=== PATIENT | male | born 1990 | race Caucasian/White ===

== ENCOUNTER 2019-02-01 09:05 | Inpatient (IN) | payer BC, SELFPAY ==
[2019-02-01] MEDS ORDERED: FENTANYL CITR 100 MCG/2 ML ONE (09:20)
[2019-02-01] MEDS ORDERED: FAMOTIDINE 20 MG/2 ML VIAL IV ONE (09:20)
[2019-02-01] MEDS ORDERED: ONDANSETRON 4 MG/2 ML VIAL ONE ×2 (09:20→16:14)
[2019-02-01 09:32] LABS: Absolute Lymphocytes (CBC) 1.8 K/uL (0.7-4.9); Basophils % 0.6 % (0-1.3); Hematocrit 42.1 % (39.6-49.0); Lymphocytes % 16.5 % (15.3-44.8); MPV 8.9 fL (7.6-11.3); RBC Red Blood Cell Count 5.19 M/uL (4.33-5.43)
[2019-02-01 09:49] LABS: Albumin 4.3 g/dL (3.4-5.0); Bilirubin Direct 0.1 mg/dL (0-0.2); Bilirubin Total 0.5 mg/dL (0.2-1.0); Potassium 3.3 mmol/L (3.5-5.1); Protein, Total 8.1 g/dL (6.4-8.2)
[2019-02-01 10:44] LABS: Urine Blood NEGATIVE (NEG); Urine Glucose NEGATIVE (NEG); Urine Protein NEGATIVE (NEG)
[2019-02-01 11:00] LABS: Urine Bacteria <20 /HPF (NONE SEEN); Urine Culture Reflex Order NOT NEEDED; Urine Mucus SLIGHT /HPF (NONE SEEN); Urine RBC <5 /HPF (NONE SEEN)
[2019-02-01] MEDS ORDERED: SUCRALFATE 1 GM TABLET ONE (11:04)
--- NOTE | 2019-02-01 11:27 | RAD REPORT ---
EXAM DESCRIPTION: CTAbdomen Pelvis W Contrast - 02/01/2019 10:20 am CLINICAL HISTORY: Abdominal pain. ABD PAIN COMPARISON: No comparisons TECHNIQUE: Biphasic CT imaging of the abdomen and pelvis was performed with 100 ml non-ionic IV cont rast. All CT scans are performed using dose optimization technique as appropriate and may include automated exposure control or mA/KV adjustment according to patient size. FINDINGS: The lung bases are clear.Multiple stones are seen within the gallbladder. The liver, spleen, pancreas, adrenal glands and kidneys are within normal limits. No bowel obstruction, free air, free fluid or abscess. The appendix is normal. No evidence of signi ficant lymphadenopathy. No suspicious bony findings. IMPRESSION: Cholelithiasis.
--- NOTE | 2019-02-01 11:36 | EKG ---
Test Date: 2019-02-01 Test Time: 09:18:30 Sample Builder: STACY MEASUREMENT RESULTS: Intervals: Rate: 62 IA: 166 QRSD: 126 QT: 402 QTc: 408 Humphreys: P: 57 IA: 166 QRS: 26 T: 27 INTERPRETIVE STATEMENTS: Normal sinus rhythm Nonspecific intraventricular block Abnormal ECG No previous ECG available for comparison Electronically Signed On 02-01-19 11:35:38 CDT by Chase Willson
[2019-02-01] MEDS ORDERED: HYDROMORPHONE HCL 0.5 MG/0.5 ML INJ ONE ×2 (11:37→13:13)
--- NOTE | 2019-02-01 12:42 | RAD REPORT ---
EXAM DESCRIPTION: US - Abdomen Exam Limited - 02/01/2019 12:35 pm CLINICAL HISTORY: gallstones COMPARISON: No comparisons FINDINGS: The gallbladder demonstrates numerous gallstones and sludge present within the gallbladder . No pericholecystic fluid or gallbladder wall thickening. The common bile duct is normal measuring 4 mm. The liver demonstrates no findings of intrahepatic biliary dilatation. IMPRESSION: Extensive gallbladder sludge and cholelithiasis noted.
--- NOTE | 2019-02-01 13:12 | ER ---
Nurse's Notes [facility] Name: Neymar Arndt Age: 28 yrs Sex: Male : 1990 Arrival Date: 02/01/2019 Time: 09:06 Bed 2 Private MD: Diagnosis: Acute cholecystitis Presentation: 02/01 09:09 Presenting complaint: Patient states: severe epigastric pain that began at 0500 this am ss with nausea. Transition of care: patient was not received from another setting of care. Onset of symptoms was February 01, 2019. Risk Assessment: Do you want to hurt yourself or someone else? Patient reports no desire to harm self or others. Initial Sepsis Screen: Does the patient meet any 2 criteria? No. Patient's initial sepsis screen is negative. Does the patient have a suspected source of infection? No. Patient's initial sepsis screen is negative. Care prior to arrival: None. 09:09 Method Of Arrival: Ambulatory ss 09:09 Acuity: ELOY 2 ss Historical: - Allergies: 09:13 Ibuprofen; aa5 - Home Meds: 09:11 None [Active]; ss - PMHx: 16:31 Stomach ulcers; aa5 - PSHx: 09:11 L shoulder; ss - Immunization history:: Adult Immunizations up to date. - Social history:: Smoking status: Patient/guardian denies using tobacco. - Ebola Screening: : Patient denies exposure to infectious person Patient denies travel to an Ebola-affected area in the 21 days before illness onset. Screenin:32 Abuse screen: Denies threats or abuse. Nutritional screening: No deficits noted. aa5 Tuberculosis screening: No symptoms or risk factors identified. Fall Risk None identified. Assessment: 09:14 General: Appears uncomfortable, Behavior is calm, cooperative. Pain: Complains of pain aa5 in epigastric area Pain radiates to back Pain currently is 10 out of 10 on a pain scale. Quality of pain is described as sharp, Pain began this morning Is continuous. Neuro: Level of Consciousness is awake, alert, obeys commands, Oriented to person, place, time, situation. Cardiovascular: Heart tones S1 S2 present Pulses are 3+ in right dorsalis pedis artery and left dorsalis pedis artery Edema is absent. Rhythm is sinus rhythm. Respiratory: Airway is patent Respiratory effort is even, unlabored, Respiratory pattern is regular, symmetrical. GI: Abdomen is round non-distended, Bowel sounds present X 4 quads. Abdomen is tender to palpation in epigastric area, right upper quadrant and left upper quadrant Reports nausea, vomiting. : No signs and/or symptoms were reported regarding the genitourinary system. EENT: No signs and/or symptoms were reported regarding the EENT system. Derm: Skin is pink, warm \\T\\ dry. Musculoskeletal: Range of motion: intact in all extremities. 09:14 Reassessment: Pt states "I took an old prescription of tramadol and hydrocodone this aa5 morning for the pain but I threw it all up". Pt states "I have the pain medicines from an old back injury and shoulder injury maybe from a year ago" . 09:35 Reassessment: Pt remains uncomfortable, pt rates pain 10/10 at this time. MD was aa5 notified. . 09:42 Reassessment: Patient is alert, oriented x 3, equal unlabored respirations, skin aa5 warm/dry/pink. Patient states feeling better. General: Appears comfortable. Pain: Pain currently is 7 out of 10 on a pain scale. 10:25 Reassessment: Patient is alert, oriented x 3, equal unlabored respirations, skin aa5 warm/dry/pink. Pt back from CT. Pt states "I need more pain medicine my pain is an 8". 11:37 Reassessment: Patient is alert, oriented x 3, equal unlabored respirations, skin aa5 warm/dry/pink. 11:37 General: Appears uncomfortable. Pain: Pain currently is 10 out of 10 on a pain scale. aa5 11:37 Reassessment: Pt notified of wait time for US . aa5 12:30 Reassessment: Patient is alert, oriented x 3, equal unlabored respirations, skin aa5 warm/dry/pink. Patient states feeling better. Pain: Pain currently is 4 out of 10 on a pain scale. 13:30 Reassessment: Patient appears in no apparent distress at this time. Patient and/or hb family updated on plan of care and expected duration. Pain level reassessed. Patient is alert, oriented x 3, equal unlabored respirations, skin warm/dry/pink. 14:30 Reassessment: Patient appears in no apparent distress at this time. Patient and/or hb family updated on plan of care and expected duration. Pain level reassessed. Patient is alert, oriented x 3, equal unlabored respirations, skin warm/dry/pink. 16:15 Reassessment: Patient is alert, oriented x 3, equal unlabored respirations, skin aa5 warm/dry/pink. Pt c/o increased nausea and pain at this time, rates pain 7/10 on a pain scale. MD was notified. . 16:45 Reassessment: Patient is alert, oriented x 3, equal unlabored respirations, skin aa5 warm/dry/pink. Vital Signs: 09:11 BP 167 / 92; Pulse 74; Resp 23; Pulse Ox 100% on R/A; Height 6 ft. 2 in. (187.96 cm); ss Pain 10/10; 09:32 BP 143 / 93; Pulse 77; Resp 18 S; Temp 97.0(TE); Pulse Ox 100% on R/A; Pain 9/10; aa5 09:40 Pulse Ox 90% on R/A; aa5 09:41 Pulse Ox 99% on 2 lpm NC; aa5 10:27 BP 140 / 95; Pulse 75; Resp 16 S; Pulse Ox 97% on R/A; aa5 11:10 BP 146 / 91; Pulse 56; Resp 16 S; Pulse Ox 99% on R/A; aa5 12:31 BP 151 / 97; Pulse 53; Resp 18; Pulse Ox 100% on R/A; Pain 4/10; aa5 13:30 BP 150 / 86; Pulse 60; Resp 14; Pulse Ox 100% on R/A; Pain 7/10; hb 14:30 BP 156 / 89; Pulse 64; Resp 15; Pulse Ox 100% on R/A; hb 16:00 BP 152 / 96; Pulse 71; Resp 18 S; Pulse Ox 97% on R/A; aa5 ED Course: 09:06 Patient arrived in ED. as 09:10 Gilmer Elliott MD is Attending Physician. gs 09:10 Triage completed. ss 09:11 Arm band placed on right wrist. ss 09:13 Tania Cotton, RN is Primary Nurse. aa5 09:14 Patient has correct armband on for positive identification. Bed in low position. Call aa5 light in reach. Side rails up X2. Adult w/ patient. 09:14 Inserted saline lock: 20 gauge in right antecubital area, using aseptic technique. aa5 Blood collected. 09:22 EKG done, by surgical technology instructor. reviewed by Gilmer Elliott MD. at1 10:21 CT Abd/Pelvis - IV Contrast Only In Process Unspecified. EDMS 12:35 US Abdomen Limited In Process Unspecified. EDMS 13:11 Warren Coronado MD is Hospitalizing Provider. gs 16:45 No provider procedures requiring assistance completed. Patient admitted, IV remains in aa5 place. Administered Medications: 09:23 Drug: Zofran 4 mg Route: IVP; Site: right antecubital; aa5 09:30 Follow up: Response: No adverse reaction aa5 09:25 Drug: Pepcid 20 mg Route: IVP; Site: right antecubital; aa5 09:30 Follow up: Response: No adverse reaction aa5 09:26 Drug: fentaNYL (PF) 25 mcg Route: IVP; Site: right antecubital; aa5 09:30 Follow up: Response: No adverse reaction; No change in condition aa5 09:36 Drug: fentaNYL (PF) 50 mcg Route: IVP; Site: right antecubital; aa5 09:42 Follow up: Response: No adverse reaction; Marked relief of symptoms; Pain is decreased aa5 10:26 Drug: fentaNYL (PF) 25 mcg Route: IVP; Site: right antecubital; aa5 10:35 Follow up: Response: No adverse reaction aa5 11:06 Drug: CarafATE 1 grams Route: PO; aa5 11:37 Follow up: Response: No adverse reaction aa5 11:37 Drug: Dilaudid 0.5 mg Route: IVP; Site: right antecubital; aa5 11:43 Follow up: Response: No adverse reaction aa5 13:10 CANCELLED (Duplicate Order): cefOXitin 1 grams IVPB once over 30 mins; (mix in 50 mL NS)gs 13:22 Drug: NS 0.9% 1000 ml Route: IV; Rate: 125 ml/hr; Site: right antecubital; hb 16:25 Follow up: IV Status: Infusion continued upon admission aa5 13:22 Drug: Dilaudid 0.5 mg Route: IVP; Site: right antecubital; hb 13:30 Follow up: Response: No adverse reaction aa5 13:22 Drug: Zosyn 3.375 grams Route: IVPB; Infused Over: 60 mins; Site: right antecubital; 14:22 Follow up: Response: No adverse reaction; IV Status: Completed infusion aa5 16:24 Drug: morphine 4 mg Route: IVP; Site: right antecubital; aa5 16:45 Follow up: Response: No adverse reaction; Marked relief of symptoms aa5 16:24 Drug: Benadryl 12.5 mg Route: IVP; Site: right antecubital; aa5 16:45 Follow up: Response: No adverse reaction aa5 Outcome: 13:11 Decision to Hospitalize by Provider. 16:45 Admitted to Med/surg accompanied by tech, via wheelchair, with chart, Report called to husam Watts RN 16:45 Condition: stable 16:45 Instructed on the need for admit, Demonstrated understanding of instructions. 16:48 Patient left the ED. aa5 Signatures: Dispatcher [employer] EDAllyson Del Rosario Audri, RN RN aa5 Ania Badillo RN RN Summer Rae, sustainability purchasing agent EKG Tat1 Sommer Drake RN RN Gilmer Elliott MD MD Corrections: (The following items were deleted from the chart) 09:13 09:11 Allergies: No Known Allergies; aa5 09:32 09:15 Patient has correct armband on for positive identification. Bed in low position. aa5 Call light in reach. Side rails up X2. Adult w/ patient. aa5 09:35 09:14 Cardiovascular: Heart tones S1 S2 present Rhythm is sinus rhythm aa5 aa5 16:31 09:11 PMHx: None; ss aa5
--- NOTE | 2019-02-01 13:12 | EDPHYS ---
Physician Documentation [facility] Name: Neymar Arndt Age: 28 yrs Sex: Male : 1990 Arrival Date: 02/01/2019 Time: 09:06 Bed 2 Private MD: ED Physician Gilmer Elliott HPI: 02/01 13:23 This 28 yrs old Male presents to ER via Ambulatory with complaints of gs Epigastric Pain. 13:23 The patient presents with abdominal pain in the epigastric area, in the right upper gs quadrant. 13:26 The patient presents with abdominal pain. Onset: The symptoms/episode began/occurred gs this morning, at 04:00. The symptoms radiate to right back. Associated signs and symptoms: Pertinent positives: nausea and vomiting. The symptoms are described as sharp, stabbing. Modifying factors: The symptoms are alleviated by nothing, the symptoms are aggravated by nothing. Severity of pain: At its worst the pain was severe in the emergency department the pain is unchanged. The patient has not experienced similar symptoms in the past. The patient has not recently seen a physician. Historical: - Allergies: 09:13 Ibuprofen; aa5 - Home Meds: 09:11 None [Active]; ss - PMHx: 16:31 Stomach ulcers; aa5 - PSHx: 09:11 L shoulder; ss - Immunization history:: Adult Immunizations up to date. - Social history:: Smoking status: Patient/guardian denies using tobacco. - Ebola Screening: : Patient denies exposure to infectious person Patient denies travel to an Ebola-affected area in the 21 days before illness onset. ROS: 13:26 All other systems are negative. gs Exam: 13:26 Head/Face: Normocephalic, atraumatic. Eyes: Pupils equal round and reactive to light, gs extra-ocular motions intact. Lids and lashes normal. Conjunctiva and sclera are non-icteric and not injected. Cornea within normal limits. Periorbital areas with no swelling, redness, or edema. ENT: Nares patent. No nasal discharge, no septal abnormalities noted. Tympanic membranes are normal and external auditory canals are clear. Oropharynx with no redness, swelling, or masses, exudates, or evidence of obstruction, uvula midline. Mucous membranes moist. Neck: Trachea midline, no thyromegaly or masses palpated, and no cervical lymphadenopathy. Supple, full range of motion without nuchal rigidity, or vertebral point tenderness. No Meningismus. Chest/axilla: Normal chest wall appearance and motion. Nontender with no deformity. No lesions are appreciated. Cardiovascular: Regular rate and rhythm with a normal S1 and S2. No gallops, murmurs, or rubs. Normal PMI, no JVD. No pulse deficits. Respiratory: Lungs have equal breath sounds bilaterally, clear to auscultation and percussion. No rales, rhonchi or wheezes noted. No increased work of breathing, no retractions or nasal flaring. Back: No spinal tenderness. No costovertebral tenderness. Full range of motion. Skin: Warm, dry with normal turgor. Normal color with no rashes, no lesions, and no evidence of cellulitis. MS/ Extremity: Pulses equal, no cyanosis. Neurovascular intact. Full, normal range of motion. Neuro: Awake and alert, GCS 15, oriented to person, place, time, and situation. Cranial nerves II-XII grossly intact. Motor strength 5/5 in all extremities. Sensory grossly intact. Cerebellar exam normal. Normal gait. 13:26 Constitutional: The patient appears alert, awake, uncomfortable. 13:26 ECG was reviewed by the Attending Physician. 13:26 Abdomen/GI: Palpation: moderate abdominal tenderness, in the epigastric area and right upper quadrant, rebound tenderness, is not appreciated, voluntary guarding, is elicited in the epigastric area and right upper quadrant. Vital Signs: 09:11 BP 167 / 92; Pulse 74; Resp 23; Pulse Ox 100% on R/A; Height 6 ft. 2 in. (187.96 cm); ss Pain 10/10; 09:32 BP 143 / 93; Pulse 77; Resp 18 S; Temp 97.0(TE); Pulse Ox 100% on R/A; Pain 9/10; aa5 09:40 Pulse Ox 90% on R/A; aa5 09:41 Pulse Ox 99% on 2 lpm NC; aa5 10:27 BP 140 / 95; Pulse 75; Resp 16 S; Pulse Ox 97% on R/A; aa5 11:10 BP 146 / 91; Pulse 56; Resp 16 S; Pulse Ox 99% on R/A; aa5 12:31 BP 151 / 97; Pulse 53; Resp 18; Pulse Ox 100% on R/A; Pain 4/10; aa5 13:30 BP 150 / 86; Pulse 60; Resp 14; Pulse Ox 100% on R/A; Pain 7/10; hb 14:30 BP 156 / 89; Pulse 64; Resp 15; Pulse Ox 100% on R/A; hb 16:00 BP 152 / 96; Pulse 71; Resp 18 S; Pulse Ox 97% on R/A; aa5 MDM: 09:17 Patient medically screened. 13:26 Differential diagnosis: appendicitis, bowel obstruction, cholecystitis, Cholelithiasis, gs diverticulitis. Data reviewed: vital signs, nurses notes, lab test result(s). Counseling: I had a detailed discussion with the patient and/or guardian regarding: the historical points, exam findings, and any diagnostic results supporting the discharge/admit diagnosis, lab results, radiology results, the need for further work-up and treatment in the hospital. Response to treatment: the patient's symptoms have mildly improved after treatment. Physician consultation: Warren Coronado MD and will see patient in inpatient room, would like medications started, Zosyn. 02/01 09:13 Order name: Basic Metabolic Panel; Complete Time: 11: 02/01 09:13 Order name: CBC with Diff; Complete Time: 11: 02/01 09:13 Order name: Hepatic Function; Complete Time: 11:02 02/01 09:13 Order name: Lipase; Complete Time: 11:02 02/01 09:13 Order name: Urine Microscopic Only; Complete Time: 11: 02/01 10:40 Order name: Urine Dipstick--Ancillary (enter results); Complete Time: 11:02 02/01 09:19 Order name: CT Abd/Pelvis - IV Contrast Only; Complete Time: 11:35 02/01 11:36 Order name: US Abdomen Limited; Complete Time: 12:53 02/01 09:13 Order name: IV Saline Lock; Complete Time: :26 02/01 09:13 Order name: Labs collected and sent; Complete Time: :26 02/01 09:13 Order name: Urine Dipstick-Ancillary (obtain specimen); Complete Time: 10:49 02/01 10:22 Order name: EKG; Complete Time: 10:23 gm 02/01 14:20 Order name: CASSANDRA DA SILVA EC:26 Rate is 62 beats/min. Rhythm is regular. IA interval is normal. QRS interval is gs prolonged. T waves are Normal. No ST changes noted. Clinical impression: possible delta wave, wpw. Interpreted by me. Administered Medications: : Drug: Zofran 4 mg Route: IVP; Site: right antecubital; aa5 09:30 Follow up: Response: No adverse reaction aa5 09:25 Drug: Pepcid 20 mg Route: IVP; Site: right antecubital; aa5 09:30 Follow up: Response: No adverse reaction aa5 09:26 Drug: fentaNYL (PF) 25 mcg Route: IVP; Site: right antecubital; aa5 09:30 Follow up: Response: No adverse reaction; No change in condition aa5 09:36 Drug: fentaNYL (PF) 50 mcg Route: IVP; Site: right antecubital; aa5 09:42 Follow up: Response: No adverse reaction; Marked relief of symptoms; Pain is decreased aa5 10:26 Drug: fentaNYL (PF) 25 mcg Route: IVP; Site: right antecubital; aa5 10:35 Follow up: Response: No adverse reaction aa5 11:06 Drug: CarafATE 1 grams Route: PO; aa5 11:37 Follow up: Response: No adverse reaction aa5 11:37 Drug: Dilaudid 0.5 mg Route: IVP; Site: right antecubital; aa5 11:43 Follow up: Response: No adverse reaction aa5 13:10 CANCELLED (Duplicate Order): cefOXitin 1 grams IVPB once over 30 mins; (mix in 50 mL NS)gs 13:22 Drug: NS 0.9% 1000 ml Route: IV; Rate: 125 ml/hr; Site: right antecubital; hb 16:25 Follow up: IV Status: Infusion continued upon admission aa5 13:22 Drug: Dilaudid 0.5 mg Route: IVP; Site: right antecubital; hb 13:30 Follow up: Response: No adverse reaction aa5 13:22 Drug: Zosyn 3.375 grams Route: IVPB; Infused Over: 60 mins; Site: right antecubital; hb 14:22 Follow up: Response: No adverse reaction; IV Status: Completed infusion aa5 16:24 Drug: morphine 4 mg Route: IVP; Site: right antecubital; aa5 16:45 Follow up: Response: No adverse reaction; Marked relief of symptoms aa5 16:24 Drug: Benadryl 12.5 mg Route: IVP; Site: right antecubital; 5 16:45 Follow up: Response: No adverse reaction aa Disposition: 02/01/19 13:11 Hospitalization ordered by Warren Coronado for Inpatient Admission. Preliminary diagnosis is Acute cholecystitis. - Bed requested for Telemetry/MedSurg (Inpatient). - Status is Inpatient Admission. aa5 - Condition is Stable. - Problem is new. - Symptoms have improved. UTI on Admission? No Signatures: Dispatcher [employer] EDTania Bell RN RN [address]Ania mccarthy RN RN Sommer Drake RN RN Gilmer Elliott MD MD Gisella Hernandez Corrections: (The following items were deleted from the chart) 09:13 09:11 Allergies: No Known Allergies; [facility] 13:10 13:06 cefOXitin 1 grams IVPB once over 30 mins; (mix in 50 mL NS) ordered. [facility] 15:03 13:11 Hospitalization Ordered by Warren Coronado MD for Inpatient Admission. Preliminary diagnosis is Acute cholecystitis. Bed requested for Telemetry/MedSurg (Inpatient). Status is Inpatient Admission. Condition is Stable. Problem is new. Symptoms have improved. UTI on Admission? No. 16:31 09:11 PMHx: None; [facility] 16:48 15:03 02/01/2019 13:11 Hospitalization Ordered by Warren Coronado MD for Inpatient aa5 Admission. Preliminary diagnosis is Acute cholecystitis. Bed requested for Telemetry/MedSurg (Inpatient). Status is Inpatient Admission. Condition is Stable. Problem is new. Symptoms have improved. UTI on Admission? No.
[2019-02-01] MEDS ORDERED: PIPER/TAZO/NS 3.375gm 3.375 GM/100 ML BAG ONE (13:13)
[2019-02-01] MEDS ORDERED: NA CHLORIDE 0.9% 1,000 ML ONE (13:16)
[2019-02-01] MEDS: D5 0.45 NS 1,000 ML IV SCH ×2 (15:00→23:00)
[2019-02-01] MEDS ORDERED: MORPHINE 4 MG/ML SYR ONE (16:14)
[2019-02-01] MEDS ORDERED: DIPHENHYDRAMINE 50 MG/ML VIAL ONE (16:21)
[2019-02-01] MEDS ORDERED: INSULIN -REGULAR HUMAN 50 UNIT/0.5 ML ML SQ SCH (16:46)
[2019-02-01] MEDS ORDERED: ONDANSETRON 4 MG/2 ML VIAL IV PRN (16:46)
[2019-02-01] MEDS: PIPER/TAZO/NS 3.375gm 3.375 GM/100 ML BAG IVPB SCH (17:00)
[2019-02-01] MEDS ORDERED: PROMETHAZINE 25 MG/ML VIAL IV PRN (17:16)
[2019-02-01 17:19] VITALS: BMI 38.2
[2019-02-01 17:29] LABS: Absolute Lymphocytes (CBC) 1.2 K/uL (0.7-4.9); Basophils % 0.4 % (0-1.3); Hematocrit 39.8 % (39.6-49.0); Lymphocytes % 8.2 % (15.3-44.8); MPV 8.7 fL (7.6-11.3); RBC Red Blood Cell Count 4.87 M/uL (4.33-5.43)
[2019-02-01] MEDS: INSULIN -REGULAR HUMAN 50 UNIT/0.5 ML ML SQ SCH (17:30)
[2019-02-01 17:44] LABS: Protime INR 1.15
[2019-02-01 17:49] LABS: ALT/SGPT 38 U/L (12-78); AST/SGOT 18 U/L (15-37); Albumin 3.9 g/dL (3.4-5.0); Alkaline Phosphatase 107 U/L (45-117); BUN Blood Urea Nitrogen 8 mg/dL (7-18); Bicarbonate 30 mmol/L (21-32); Bilirubin Total 0.5 mg/dL (0.2-1.0); Glucose Level 123 mg/dL (74-106); Protein, Total 7.6 g/dL (6.4-8.2); Sodium Level 139 mmol/L (136-145)
[2019-02-01] MEDS: MORPHINE 4 MG/ML SYR IV PRN (19:51)
[2019-02-01 20:05] LABS: Blood Morphology Comment NOT SEEN (NOT SEEN); Platelet Estimate ADEQ
[2019-02-01] MEDS ORDERED: INFLUENZA VACCINE (for 3y+) 0.5 ML DOSE IMVAC ONE (21:00)
--- NOTE | 2019-02-01 21:02 | CON ---
Reason For Consult: Abnormal EKG. Reason For Hospitalization: Acute cholecystitis. History Of Present Illness: Mr. Arndt was in his usual state of health until 4 o'clock this morning when he started first right-sided back pain and abdominal pain and nausea and vomiting, came to the e mergency room with evidence of acute cholecystitis on ultrasound testing and CT scan. He was not trini re of having that problem before. He has never had any kind of heart trouble. Does not recall carlitosin g an EKG done before. He had arthroscopic surgery on his left shoulder. Does not have any cardiac t rouble. He does not have any cardiac symptoms. No heart racing, syncope, chest pain. 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 Outpatient medications are none. Uses no tobacco. Does not have diabetes, hypertension, and dyslipidemia. Family History: Positive for coronary heart disease and congestive heart failure in elderly family m embers. Physical Examination: General: He is alert, oriented, pleasant, appears to be his stated age of 28. He appears to be obes e. HEENT: Normal. Lungs: Clear. Cardiac: Within normal limits. Abdomen: Soft. Extremities: No cyanosis, clubbing, or edema. Laboratory Data: His EKG shows a nonspecific intraventricular conduction block. He is in normal rhy thm. Impression: I consider Mr. Arndt to be a low risk patient to take to the operating room for cholecys tectomy. If that happens, to be Dr. Coronado's plan. DOLORES/CALLI Voice ID: [id number] Report ID: [id number]
[2019-02-01] MEDS: HYDROCODONE/APAP 7.5/325 MG TAB PO PRN (22:20)
--- NOTE | 2019-02-02 02:27 | HP ---
Date of Consultation: 02/01/2019 Brief History Of Present Illness: Patient is a 28-year-old male, who presents with approxi mately 1-day history of epigastric abdominal pain radiating through his back. He states the pain is sharp and stabbing in nature and is intermittent, but has a gjobblbpg-tequsswpnhl-pwhf fashion and ne hal went completely away. He has been n.p.o. since the pain onset. He has had persistent nausea, vo miting, and been unable to tolerate p.o. He has had multiple ulcers before in the past by luann hugo, but he states this did not feel like that; and as such, he came to the emergency room with the abo ve-stated complaints. Past Medical History: Significant for shoulder injury. Past Surgical History: He has had a left shoulder surgical repair. Allergies: TO PEAS AND IBUPROFEN. Home Medications: None. Social History: He denies smoking, alcohol, or recreational drug use. Review of Systems: Ten-point review of systems other than HPI, denies. Physical Examination: General: At the time of my examination, he is awake, alert, and oriented. Psychiatric: Appropriate, conversive. HEENT: Normocephalic. Sclerae icteric. Mucosa membranes are moist. Oropharynx is clear. Neck: Supple. No JVD. Chest: Normal expansion and excursion. Cardiovascular: Regular rate and rhythm. Pulmonary: Clear to auscultation bilaterally. Abdomen: Soft with positive right lower quadrant and epigastric tenderness to palpation. No rebound . No guarding. No focal peritonitis. Negative Nuñez sign. He is obese generally. Extremities: No clubbing, cyanosis, or edema. Skin: Warm and dry. Laboratory Data: Laboratory exam reveals a white blood cell count of 10.9, hemoglobin is 14.3, hemat ocrit of 42.1, platelet count is 420, neutrophils are 76%. His sodium 139, potassium 3.3, chloride 1 02, carbon dioxide 28, BUN 13, creatinine 1.02, glucose is 131. Total bilirubin 0.5, direct componen t 0.1. AST 25, ALT 42, alkaline phosphatase 116, lipase 65. UA was essentially negative. He had im aging performed, which included a CT scan of the abdomen pelvis, officially read as cholelithiasis on ly, multiple stones seen within the gallbladder. He had a followup abdominal ultrasound of the right upper quadrant, which was officially read as well as extensive gallbladder sludge and cholelithiasis noted. The gallbladder demonstrates numerous gallstones and sludge present within the gallbladder. No pericholecystic fluid or gallbladder wall thickening. Common bile duct is normal measuring 4 mm. No intrahepatic biliary ductal dilatation. Assessment And Plan: This is a 28-year-old male, who comes in with signs of biliary colic. 1.IV fluid hydration. 2.Antibiotic coverage with Zosyn 3.375 IV q.6. 3.Serial abdominal exams. 4.I have explained the risks, benefits, and alternatives of laparoscopic, possible open cholecystect ralph including, but not limited to bleeding, infection, damage to surrounding tissues including bile d ucts and intestines. Patient agrees to proceed as indicated. MIHAI/CALLI Voice ID: [id number] Report ID: [id number]
[2019-02-02] MEDS: MORPHINE 4 MG/ML SYR IV PRN (03:36)
[2019-02-02] MEDS: D5 0.45 NS 1,000 ML IV SCH ×3 (03:37→15:00)
[2019-02-02] MEDS: PIPER/TAZO/NS 3.375gm 3.375 GM/100 ML BAG IVPB SCH ×3 (03:43→15:53)
[2019-02-02] MEDS: INSULIN -REGULAR HUMAN 50 UNIT/0.5 ML ML SQ SCH ×4 (05:30→15:54)
[2019-02-02 07:03] LABS: Magnesium 2.3 mg/dL (1.8-2.4); Phosphorus 3.3 mg/dL (2.5-4.9)
[2019-02-02] MEDS ORDERED: NA CHLORIDE 0.9% 1,000 ML ONE ×2 (09:01→13:08)
[2019-02-02] MEDS ORDERED: PROPOFOL 200 MG/20 ML VIAL IV ONE (09:31)
[2019-02-02] MEDS ORDERED: MIDAZOLAM HCL 2 MG/2 ML INJ ONE (09:31)
[2019-02-02] MEDS ORDERED: GLYCOPYRROLATE 0.2 MG/ML SYR ONE (09:31)
[2019-02-02] MEDS ORDERED: LIDOCAINE 2% MPF 5 ML VIAL ONE (09:32)
[2019-02-02] MEDS ORDERED: FENTANYL CITR 250 MCG/5 ML ONE (09:32)
[2019-02-02] MEDS ORDERED: BUPIVACA 0.5%/EPI 0.0005%/PF 30 ML VIAL ONE (10:11)
[2019-02-02] MEDS ORDERED: NEOSTIGMINE 1 MG/ML -10 ML VIAL ONE (10:29)
[2019-02-02] MEDS ORDERED: ONDANSETRON 4 MG/2 ML VIAL ONE (10:29)
[2019-02-02] MEDS ORDERED: ROCURONIUM 50 MG/5 ML VIAL IV ONE (11:07)
--- NOTE | 2019-02-02 12:09 | P.OP ---
Preoperative diagnosis: Acute Cholecystitis Postoperative diagnosis: Acute Cholecystitis Primary procedure: Laparoscopic Cholecystectomy Anesthesia: GETA Estimated blood loss: <5cc Specimen: Gallbladder Findings: Grossly inflammed, short cystic duct, large stones Complications: None Transferred to: Recovery Room Condition: Good
[2019-02-02] MEDS: HYDROMORPHONE HCL 1 MG/ML INJ ONE ×6 (12:35→13:10)
[2019-02-02 13:06] VITALS: O2SAT 96
[2019-02-02] MEDS: HYDROCODONE/APAP 7.5/325 MG TAB PO PRN (14:29)
[2019-02-02 16:28] VITALS: BP 143/78; TEMP 98.4
[2019-02-02] MEDS ORDERED: INFLUENZA VACCINE (for 3y+) 0.5 ML DOSE IMVAC ONE (17:00)
--- NOTE | 2019-02-02 23:07 | OP ---
Date of Procedure: 02/02/2019 Surgeon: Warren Coronado MD, Preoperative Diagnosis: Acute cholecystitis. Postoperative Diagnosis: Acute cholecystitis. Procedure Performed: Laparoscopic cholecystectomy. Anesthesia: General endotracheal plus local with 0.5% Marcaine with epinephrine. Estimated Blood Loss: Less than 5 mL. Specimens: Gallbladder. Findings: 1.Grossly inflamed gallbladder. 2.Short cystic duct. 3.Hydrops of gallbladder. 4.Large dependent stones. 5.Stone impacted in gallbladder neck. Complications: None. Disposition: Transferred to recovery room in good condition. Description Of Procedure: After informed consent was obtained, patient was brought to the operating room, prepped and draped in the usual sterile fashion. After adequate anesthesia was achieved, a sup raumbilical area was anesthetized with 0.25% Marcaine and sharply incised. A 5 mm trocar was introdu carolyn into the abdomen without evidence of complication. Insufflation was obtained to 15 mmHg at this time. There was no injury to vital structures upon entry to the abdomen. The patient was then posit ioned head up, right-side up position. Additional trocar site was chosen in the epigastrium. This w as similarly anesthetized, sharply incised, and 5 mm trocar was introduced into the abdomen without e vidence of complication. Additional trocar chosen in the right upper quadrant. This was similarly a nesthetized, sharply incised, and 5 mm trocar was introduced in the abdomen without evidence of compl ication. The umbilical trocar was then up-sized to a 12 mm under direct visualization without eviden ce of complication. Ratcheted grasper was used to attempt to grasp the patient's gallbladder, which was found to be grossly inflamed and full of stones. This required decompression. A decompression n eedle was brought in through the port and used to suction out the gallbladder from the fundus of the gallbladder. The gallbladder was then able to be grasped with the ratcheted graspers. The suction n eedle was then passed off the back table. Patient's gallbladder was placed toward the patient's righ t shoulder and dissection continued down to dissect the omentum and scar tissue off the lateral aspec t of the gallbladder and off the anterior surface of the gallbladder. The gallbladder was quite antoine atous at this time. Dissection continued down through the edematous tissue to expose the gallbladder wall. I then dissected down to the Dillan pouch area, where the cystic duct and cystic artery wer e both identified. The critical view of safety was obtained at this time, clearing the 2 above struc tures and showing only 2 structures into the gallbladder. These were both doubly clipped on the prox imal side and singly on the distal side of both cystic duct and cystic artery. These were both ligat ed using Endo ko at this point, and the gallbladder was then removed from the hepatic fossa witho ut evidence of complication. The gallbladder was then placed in an EndoCatch bag and removed through the umbilical trocar, which required dilatation and sent off for pathologic examination. Reinsuffla tion was obtained. The area was copiously irrigated multiple times until complete clear. There was some minimal hemostatic maneuvers required to the hepatic fossa. Clips were found to be in good kerry omic position without any leakage and there was no spillage of stones. After the patient was copious ly irrigated and suctioned out dry, patient was then positioned in neutral position. The umbilical t rocar site was then removed. The umbilical trocar site was then closed using a Albino-Suzie sutur e passer with 0 Vicryl in an interrupted fashion with good approximation of the tissues. All trocars were then removed after completely desufflating the abdomen. All skin incisions were copiously irri gated and closed with a 4-0 Monocryl in a running fashion. Dermabond was placed over the top. Patie nt tolerated the procedure well without evidence of complication and transferred to PACU in good condition. All counts were correct at the e nd of the case. MIHAI/CALLI Voice ID: [id number] Report ID: [id number]
== END 2019-02-02 16:42 | disposition home or self-care (01) | DRG 419 ==
LOC: ER 09:05 → ERHOLD 14:12 → 4TH 16:35
PROVIDERS: ADMIT Surgery; ATTEND Surgery
PROC: 0FT44ZZ Resection of Gallbladder, Percutaneous Endoscopic Approach (ICD-10-PCS; principal; 2019-02-02 09:15)
DX: K81.0 Acute cholecystitis (principal)
CPT/HCPCS: 36415; 74177; 76705; 80048; 80053; 80076; 81003; 81015; 82962; 83690; 83735; 84100; 85025; 85610; 88304; 90471; 93005; 96361; 96365; 96375; 99285; J1170; J1200; J2250; J2405; J2543; J2550; J2704; J2710; J3010; J7030; J7799; Q2035; Q9967

== ENCOUNTER 2019-02-03 19:07 | Observation (INO) | payer BC ==
[2019-02-03] MEDS ORDERED: CEFOXITIN SODIUM 1 GM/VIAL ONE (19:34)
[2019-02-03] MEDS ORDERED: FENTANYL CITR 100 MCG/2 ML ONE (19:34)
[2019-02-03] MEDS ORDERED: NA CHLORIDE 0.9% 50 ML IV ONE (19:35)
[2019-02-03] MEDS ORDERED: NA CHLORIDE 0.9% 1,000 ML ONE (19:35)
[2019-02-03 20:07] LABS: Absolute Lymphocytes (CBC) 1.8 K/uL (0.7-4.9); Basophils % 0.6 % (0-1.3); Hematocrit 43.2 % (39.6-49.0); MPV 8.9 fL (7.6-11.3)
[2019-02-03 20:15] LABS: Urine Blood TRACE (NEG); Urine Glucose NEGATIVE (NEG); Urine Protein NEGATIVE (NEG); Urine pH 6.5 (5.0-7.0)
[2019-02-03] MEDS ORDERED: PIPER/TAZO/NS 3.375gm 3.375 GM/100 ML BAG ONE (20:16)
[2019-02-03 20:18] LABS: Albumin 3.9 g/dL (3.4-5.0); Bilirubin Direct 0.9 mg/dL (0-0.2); Bilirubin Total 1.7 mg/dL (0.2-1.0); Potassium 3.5 mmol/L (3.5-5.1); Protein, Total 8.1 g/dL (6.4-8.2)
[2019-02-03] MEDS ORDERED: HYDROMORPHONE HCL 1 MG/ML INJ ONE (20:31)
[2019-02-03] MEDS ORDERED: ONDANSETRON 4 MG/2 ML VIAL IV PRN (20:33)
--- NOTE | 2019-02-03 20:35 | RAD REPORT ---
EXAM DESCRIPTION: CTAbdomen Pelvis W Contrast - 02/03/2019 8:24 pm CLINICAL HISTORY: Abdominal pain. ABD PAIN COMPARISON: <Comparisons> TECHNIQUE: Biphasic CT imaging of the abdomen and pelvis was performed with 100 ml non-ionic IV cont rast. All CT scans are performed using dose optimization technique as appropriate and may include automated exposure control or mA/KV adjustment according to patient size. FINDINGS: Mild linear atelectasis is present in both lung bases. Trace pneumoperitoneum is seen compatible with recent postoperative status. Mild fluid is seen in the gallbladder fossa compatible with history of recent cholecystectomy. The liver, spleen, pancreas, ad renal glands and kidneys are within normal limits. No bowel obstruction, free air, abscess. The appendix is normal in size but contains an appendicolit h. No evidence of significant lymphadenopathy. No suspicious bony findings. IMPRESSION: Recent cholecystectomy changes are seen without unexpected recent postoperative finding.
[2019-02-03 20:43] LABS: Urine Bacteria <20 /HPF (NONE SEEN); Urine Culture Reflex Order NOT NEEDED; Urine Mucus 1+ /HPF (NONE SEEN); Urine RBC <5 /HPF (NONE SEEN)
--- NOTE | 2019-02-03 20:49 | ER ---
Nurse's Notes [facility] Name: Neymar Arndt Age: 28 yrs Sex: Male : 1990 Arrival Date: 02/03/2019 Time: 19:08 Bed 19 Private MD: Andrew Ford Diagnosis: Intraoperative and postprocedural complications and disorders of digestive system, not elsewhere classified Presentation: 02/03 19:12 Presenting complaint: Patient states: I had a cholecystectomy here yesterday with Dr. trever Fink, I am having a lot of pain, had a fever at home (with ear thermometer) of 101.4 at 1840. Took norco at 1830. I have been clammy all day. Transition of care: patient was not received from another setting of care. Onset of symptoms was February 03, 2019. Risk Assessment: Do you want to hurt yourself or someone else? Patient reports no desire to harm self or others. Initial Sepsis Screen: Does the patient meet any 2 criteria? HR > 90 bpm. Does the patient have a suspected source of infection? Yes: Acute abdominal pain If YES to both, name of provider notified: Gilmer Elliott MD Care prior to arrival: None. 19:12 Method Of Arrival: Wheelchair la1 19:12 Acuity: ELOY 2 la1 Historical: - Allergies: 19:11 Ibuprofen; la1 - PMHx: 19:11 Stomach Ulcers; la1 - Immunization history:: Adult Immunizations up to date. - Social history:: Smoking status: Patient/guardian denies using tobacco. - Ebola Screening: : No symptoms or risks identified at this time. Screenin:29 Abuse screen: Denies threats or abuse. Denies injuries from another. Nutritional rr5 screening: No deficits noted. Tuberculosis screening: No symptoms or risk factors identified. Fall Risk None identified. Total Petersen Fall Scale indicates No Risk (0-24 pts). Assessment: 19:20 General: Appears in no apparent distress. uncomfortable, Behavior is calm, cooperative, rr5 appropriate for age, Reports fever for. Pain: Complains of pain in abdomen Pain does not radiate. Pain currently is 8 out of 10 on a pain scale. Quality of pain is described as aching, Pain began gradually, Is intermittent. Neuro: Level of Consciousness is awake, alert, obeys commands, Oriented to person, place, time, situation, Appropriate for age. Cardiovascular: Capillary refill < 3 seconds Patient's skin is warm and dry. Respiratory: Airway is patent Respiratory effort is even, unlabored, Respiratory pattern is regular, symmetrical. GI: Abdomen is non-distended, post laparoscopic cholecystectomy incision site. dry and intact. Reports lower abdominal pain, upper abdominal pain. 19:20 : No signs and/or symptoms were reported regarding the genitourinary system. EENT: No rr5 signs and/or symptoms were reported regarding the EENT system. Derm: Skin is intact, Skin temperature is warm. Musculoskeletal: Circulation, motion, and sensation intact. Capillary refill < 3 seconds. 19:58 Reassessment: dr. fink at bedside examining the patient. rr5 20:21 Reassessment: dr. fink with verbal order to saul [employer] give zosyn instead of rr5 cefoxitin. 20:35 Reassessment: Patient appears in no apparent distress at this time. came back from CT rr5 scan, complaining the pain getting worse. ED provider aware with order made and carried out. dr. fink talked to patient and advised for admission. patient agreed for thee plan of care. 21:05 Reassessment: Patient appears in no apparent distress at this time. Patient is alert, rr5 oriented x 3, equal unlabored respirations, skin warm/dry/pink. awaiting for room assignment. Patient states symptoms have improved. Vital Signs: 19:11 BP 139 / 89; Pulse 110; Resp 18; Temp 98.5; Pulse Ox 100% on R/A; Weight 135.17 kg; la1 Height 6 ft. 2 in. (187.96 cm); 19:50 BP 124 / 86; Pulse 103; Resp 19; Pulse Ox 96% ; Pain 8/10; rr5 20:35 BP 143 / 86; Pulse 105; Resp 15; Pulse Ox 96% ; Pain 9/10; rr5 21:22 BP 124 / 72; Pulse 90; Resp 17; Temp 98.7; Pulse Ox 99% ; Pain 6/10; rr5 19:11 Body Mass Index 38.26 (135.17 kg, 187.96 cm) la1 ED Course: 19:08 Patient arrived in ED. mr 19:11 Andrew Ford MD is Private Physician. mr 19:14 Triage completed. la1 19:14 Arm band placed on left wrist. la1 19:15 Gilmer Elliott MD is Attending Physician. gs 19:24 Isra Mclaughlin, MADDISON is Primary Nurse. rr5 19:30 Patient has correct armband on for positive identification. Placed in gown. Bed in low rr5 position. Call light in reach. Side rails up X2. Pulse ox on. NIBP on. 19:50 Inserted saline lock: 20 gauge in right forearm, using aseptic technique. Blood rr5 collected. 19:50 First set of blood cultures drawn by me. rr5 20:15 Second set of blood cultures drawn by me. rr5 20:22 CT completed. Patient tolerated procedure well. Patient moved back from CT. bq 20:24 CT Abd/Pelvis - IV Contrast Only In Process Unspecified. EDMS 20:46 Warren Fink MD is Hospitalizing Provider. gs 21:21 No provider procedures requiring assistance completed. Patient admitted, IV remains in rr5 place. intact, No redness/swelling at site. Administered Medications: 19:50 Drug: NS 0.9% 1000 ml Route: IV; Rate: 1 bolus; Site: right forearm; rr5 21:10 Follow up: Response: No adverse reaction; IV Status: Completed infusion; IV Intake: rr5 1000ml 19:51 Drug: fentaNYL (PF) 50 mcg {Note: rass 0.} Route: IVP; Site: right forearm; rr5 20:35 Follow up: Response: No adverse reaction; Pain is unchanged, physician notified rr5 20:35 Follow up: Response: RASS: Alert and Calm (0) rr5 20:15 Not Given (Physician Discretion; Dr. Fink requested zosyn): cefOXitin 1 grams IVPB pm1 once over 30 mins; (mix in 50 mL NS) 20:36 Drug: Zosyn 3.375 grams Route: IVPB; Infused Over: 60 mins; Site: right forearm; rr5 21:23 Follow up: Response: No adverse reaction; IV Status: Completed infusion; IV Intake: rr5 100ml 20:37 Drug: Dilaudid 1 mg {Note: rass 0.} Route: IVP; Site: right forearm; rr5 21:23 Follow up: Response: No adverse reaction; Pain is decreased; RASS: Alert and Calm (0) rr5 Intake: 21:10 IV: 1000ml; Total: 1000ml. rr5 21:23 IV: 100ml; Total: 1100ml. rr5 Outcome: 20:49 Decision to Hospitalize by Provider. 21:30 Admitted to Tele accompanied by nurse, room 406, with chart, Report called to briana rr5 21:30 Condition: stable 21:30 Instructed on the need for admit. 21:50 Patient left the ED. rr5 Signatures: Dispatcher [employer] Monique Araya mr AsherDebbie Lee RN RN la1 Gilmer Elliott MD MD gs Isra Mclaughlin RN RN rr5 Saul Knutson NP pm1 Corrections: (The following items were deleted from the chart) 19:57 19:51 fentaNYL (PF) 50 mcg IVP in right forearm rr5 rr5
--- NOTE | 2019-02-03 20:50 | EDPHYS ---
Physician Documentation [facility] Name: Neymar Arndt Age: 28 yrs Sex: Male : 1990 Arrival Date: 02/03/2019 Time: 19:08 Bed 19 Private MD: Andrew Ford ED Physician Gilmer Elliott HPI: 02/03 21:11 This 28 yrs old Male presents to ER via Wheelchair with complaints of Post gs surgical pain fever. 21:11 The patient presents with abdominal pain. Onset: The symptoms/episode began/occurred gs yesterday. The symptoms do not radiate. Associated signs and symptoms: Pertinent positives: fever. Severity of pain: At its worst the pain was severe in the emergency department the pain is unchanged. The patient has been recently seen by a physician: The patient has been recently been admitted at [facility]. Historical: - Allergies: 19:11 Ibuprofen; la1 - PMHx: 19:11 Stomach Ulcers; la1 - Immunization history:: Adult Immunizations up to date. - Social history:: Smoking status: Patient/guardian denies using tobacco. - Ebola Screening: : No symptoms or risks identified at this time. ROS: 21:11 All other systems are negative. gs Exam: 21:11 Head/Face: Normocephalic, atraumatic. Eyes: Pupils equal round and reactive to light, gs extra-ocular motions intact. Lids and lashes normal. Conjunctiva and sclera are non-icteric and not injected. Cornea within normal limits. Periorbital areas with no swelling, redness, or edema. ENT: Nares patent. No nasal discharge, no septal abnormalities noted. Tympanic membranes are normal and external auditory canals are clear. Oropharynx with no redness, swelling, or masses, exudates, or evidence of obstruction, uvula midline. Mucous membranes moist. Neck: Trachea midline, no thyromegaly or masses palpated, and no cervical lymphadenopathy. Supple, full range of motion without nuchal rigidity, or vertebral point tenderness. No Meningismus. Chest/axilla: Normal chest wall appearance and motion. Nontender with no deformity. No lesions are appreciated. Cardiovascular: Regular rate and rhythm with a normal S1 and S2. No gallops, murmurs, or rubs. Normal PMI, no JVD. No pulse deficits. Respiratory: Lungs have equal breath sounds bilaterally, clear to auscultation and percussion. No rales, rhonchi or wheezes noted. No increased work of breathing, no retractions or nasal flaring. Back: No spinal tenderness. No costovertebral tenderness. Full range of motion. Skin: Warm, dry with normal turgor. Normal color with no rashes, no lesions, and no evidence of cellulitis. MS/ Extremity: Pulses equal, no cyanosis. Neurovascular intact. Full, normal range of motion. Neuro: Awake and alert, GCS 15, oriented to person, place, time, and situation. Cranial nerves II-XII grossly intact. Motor strength 5/5 in all extremities. Sensory grossly intact. Cerebellar exam normal. Normal gait. 21:11 Constitutional: The patient appears alert, awake, uncomfortable. 21:11 Abdomen/GI: Palpation: moderate abdominal tenderness, in all quadrants. Vital Signs: 19:11 BP 139 / 89; Pulse 110; Resp 18; Temp 98.5; Pulse Ox 100% on R/A; Weight 135.17 kg; la1 Height 6 ft. 2 in. (187.96 cm); 19:50 BP 124 / 86; Pulse 103; Resp 19; Pulse Ox 96% ; Pain 8/10; rr5 20:35 BP 143 / 86; Pulse 105; Resp 15; Pulse Ox 96% ; Pain 9/10; rr5 21:22 BP 124 / 72; Pulse 90; Resp 17; Temp 98.7; Pulse Ox 99% ; Pain 6/10; rr5 19:11 Body Mass Index 38.26 (135.17 kg, 187.96 cm) la1 MDM: 19:26 Patient medically screened. gs 20:14 Physician consultation: Warren Coronado MD would like medications started, Zosyn, Cancel pm1 cefoxitin. 21:11 Data reviewed: vital signs, nurses notes, old medical records, lab test result(s), radiologic studies, and as a result, I will admit patient. 02/03 19:30 Order name: Basic Metabolic Panel; Complete Time: 20:23 02/03 19:30 Order name: CBC with Diff; Complete Time: 20:15 02/03 19:30 Order name: Hepatic Function; Complete Time: 20:23 02/03 19:30 Order name: Lipase; Complete Time: 20:23 gs 02/03 19:30 Order name: Urine Microscopic Only; Complete Time: 20:49 gs 02/03 19:30 Order name: Blood Culture* gs 02/03 19:56 Order name: Urine Dipstick--Ancillary (enter results); Complete Time: 20:23 ar5 02/03 20:37 Order name: CBC with Automated Diff EDMS 02/03 20:37 Order name: CBC with Automated Diff EDMS 02/03 20:37 Order name: CBC with Automated Diff EDMS 02/03 20:37 Order name: Comprehensive Metabolic Panel EDMS 02/03 20:37 Order name: Comprehensive Metabolic Panel EDMS 02/03 20:37 Order name: Comprehensive Metabolic Panel EDMS 02/03 20:37 Order name: Magnesium EDMS 02/03 19:30 Order name: IV Saline Lock; Complete Time: 19:57 gs 02/03 19:30 Order name: Labs collected and sent; Complete Time: 19:57 gs 02/03 19:30 Order name: Urine Dipstick-Ancillary (obtain specimen); Complete Time: 19:57 gs 02/03 19:30 Order name: CT Abd/Pelvis - IV Contrast Only; Complete Time: 20:49 gs 02/03 20:37 Order name: Clear Liquid EDMS 02/03 20:37 Order name: Magnesium EDMS 02/03 20:37 Order name: Magnesium EDMS 02/03 20:37 Order name: Phosphorus EDMS 02/03 20:37 Order name: Phosphorus EDMS 02/03 20:37 Order name: Phosphorus EDMS Administered Medications: 19:50 Drug: NS 0.9% 1000 ml Route: IV; Rate: 1 bolus; Site: right forearm; rr5 21:10 Follow up: Response: No adverse reaction; IV Status: Completed infusion; IV Intake: rr5 1000ml 19:51 Drug: fentaNYL (PF) 50 mcg {Note: rass 0.} Route: IVP; Site: right forearm; rr5 20:35 Follow up: Response: No adverse reaction; Pain is unchanged, physician notified rr5 20:35 Follow up: Response: RASS: Alert and Calm (0) rr5 20:15 Not Given (Physician Discretion; Dr. Coronado requested zosyn): cefOXitin 1 grams IVPB pm1 once over 30 mins; (mix in 50 mL NS) 20:36 Drug: Zosyn 3.375 grams Route: IVPB; Infused Over: 60 mins; Site: right forearm; rr5 21:23 Follow up: Response: No adverse reaction; IV Status: Completed infusion; IV Intake: rr5 100ml 20:37 Drug: Dilaudid 1 mg {Note: rass 0.} Route: IVP; Site: right forearm; rr5 21:23 Follow up: Response: No adverse reaction; Pain is decreased; RASS: Alert and Calm (0) rr5 Disposition: 02/03/19 20:49 Hospitalization ordered by Warren Coronado for Observation. Preliminary diagnosis is Intraoperative and postprocedural complications and disorders of digestive system, not elsewhere classified. - Bed requested for Telemetry/MedSurg (observation). - Status is Observation. rr5 - Condition is Stable. - Problem is new. - Symptoms have improved. UTI on Admission? No Signatures: Dispatcher [employer] EDMS Ita Perla, LARISSA GARCIA-Tamera Lee RN RN mw Joni Phillips RN RN la1 Chava Knutson, BEEHIVE KILN CHARCOAL BURNER BEEHIVE KILN CHARCOAL BURNER pm1 Gilmer Elliott MD MD gs Roque, Raymond RN RN rr5 Corrections: (The following items were deleted from the chart) 21:18 20:49 Hospitalization Ordered by Warren Coronado MD for Observation. Preliminary diagnosis mw is Intraoperative and postprocedural complications and disorders of digestive system, not elsewhere classified. Bed requested for Telemetry/MedSurg (observation). Status is Observation. Condition is Stable. Problem is new. Symptoms have improved. UTI on Admission? No. gs 21:50 21:18 02/03/2019 20:49 Hospitalization Ordered by Warren Coronado MD for Observation. rr5 Preliminary diagnosis is Intraoperative and postprocedural complications and disorders of digestive system, not elsewhere classified. Bed requested for Telemetry/MedSurg (observation). Status is Observation. Condition is Stable. Problem is new. Symptoms have improved. UTI on Admission? No. mw
[2019-02-03] MEDS: INSULIN -REGULAR HUMAN 50 UNIT/0.5 ML ML SQ SCH (21:00)
[2019-02-03] MEDS ORDERED: POTASSIUM CL SA 10 MEQ TAB PO ONE (22:05)
[2019-02-03 22:09] VITALS: BMI 37.9
[2019-02-03] MEDS: Ringers Lactate 1,000 ML IV SCH (22:10)
[2019-02-04] MEDS: HYDROMORPHONE HCL 1 MG/ML INJ IV PRN ×4 (00:11→18:46)
--- NOTE | 2019-02-04 00:14 | HP ---
Date of Admission: 02/03/2019 Brief History Of Present Illness: Patient is a 28-year-old male, known to me from surgery yesterday. He has no past medical history significant who presents to the hospital today with worsening abdomi nal pain after a laparoscopic cholecystectomy yesterday. He had significant inflammatory changes in the short cystic duct. However, he stated that he had some subjective fever, he believes, to approxi mately 101 when they checked it at home and some abdominal pain in the epigastrium and right upper qu adrant. It is much better than it was, he states preoperatively; however, I gave him instructions th at he should return with the concerns of abdominal pain, which is worsening or not improving and any fever, and as such, he came for the above-stated issues. Past Medical History: Negative. Past Surgical History: Laparoscopic cholecystectomy on 02/02/2019. Social History: Denies smoking, alcohol, recreational drug use. Home Medications: He would get a prescription for Robert Lee at home, which he took. Allergies: TO IBUPROFEN. Review of Systems: A 10-point review of systems other than HPI, denies. Physical Examination: General: At the time of my examination, he is awake, alert, and oriented. Psychiatric: Appropriate, conversive. HEENT: He is normocephalic. Sclerae icteric. Mucous membranes are moist. His oropharynx clear. Neck: Supple. No JVD. Chest: Normal expansion and excursion. Cardiovascular: Tachycardia, otherwise regular rhythm. Pulmonary: Decreased breath sounds bilaterally. Abdomen: Soft with appropriate rose-incisional and right upper quadrant tenderness to palpation. No rebound. No guarding. No focal peritonitis. No peritoneal signs. There is no evidence of celluli tis. The incisions were clean and dry. Extremities: No clubbing, cyanosis, or edema. Laboratory Data: Reveals a white blood count 14.0, hemoglobin is 14.4, hematocrit of 43.2, neutrophi ls are 73%, his platelet count is 360. Sodium 136, potassium 3.5, chloride 99, carbon dioxide 30, BU N 8, creatinine 0.9, glucose is 97, calcium 8.9, total bilirubin 1.7, direct bilirubin 0.9, AST 60, A LT 70, alkaline phosphatase 113. His lipase is 67. His UA showed only trace blood. He had a CT sca n performed of the abdomen and pelvis, which I reviewed with Dr. Schuster this evening and personally rev iewed myself. It was officially read as recent cholecystectomy changes are seen without unexpected r ecent postoperative findings. There is trace pneumoperitoneum, mild fluid is seen in the gallbladder fossa compatible with history of cholecystectomy. Liver, spleen, pancreas, and adrenal glands are w ithin normal limits. No bowel obstruction, free air, or abscess. The appendix is normal size, but c ontaining the appendicolith. No evidence of significant lymphadenopathy. Assessment And Plan: This is a 28-year-old male, who comes in for pain management postoperatively. 1.IV fluid hydration. 2.Antibiotic coverage with Zosyn 3.375. 3.Serial laboratory exam in the morning and serial abdominal exams. I have explained the risks, millicent efits, and alternatives of the above stated plan. The patient agrees to proceed as indicated. ARASH Voice ID: [id number]
[2019-02-04] MEDS: HYDROCODONE/APAP 7.5/325 MG TAB PO PRN ×2 (01:52→13:01)
[2019-02-04] MEDS: Ringers Lactate 1,000 ML IV SCH ×3 (03:49→21:01)
[2019-02-04 05:47] LABS: Absolute Lymphocytes (CBC) 1.9 K/uL (0.7-4.9); Basophils % 0.7 % (0-1.3); Hematocrit 36.6 % (39.6-49.0); Lymphocytes % 18.6 % (15.3-44.8); MPV 9.2 fL (7.6-11.3); RBC Red Blood Cell Count 4.48 M/uL (4.33-5.43)
[2019-02-04 05:55] LABS: ALT/SGPT 96 U/L (12-78); AST/SGOT 77 U/L (15-37); Albumin 3.4 g/dL (3.4-5.0); Alkaline Phosphatase 118 U/L (45-117); BUN Blood Urea Nitrogen 8 mg/dL (7-18); Bicarbonate 32 mmol/L (21-32); Bilirubin Total 1.9 mg/dL (0.2-1.0); Glucose Level 92 mg/dL (74-106); Magnesium 2.1 mg/dL (1.8-2.4); Phosphorus 3.1 mg/dL (2.5-4.9); Potassium 3.6 mmol/L (3.5-5.1); Protein, Total 7.2 g/dL (6.4-8.2); Sodium Level 139 mmol/L (136-145)
[2019-02-04] MEDS ORDERED: POTASSIUM CL SA 10 MEQ TAB PO ONE (07:30)
[2019-02-04] MEDS: INSULIN -REGULAR HUMAN 50 UNIT/0.5 ML ML SQ SCH ×4 (07:30→21:00)
[2019-02-04] MEDS: ENOXAPARIN 40 MG/0.4 ML SQ SCH (08:48)
--- NOTE | 2019-02-04 10:20 | P.PN ---
Subjective Date of Service: 02/04/19 Subjective: Improving (Patient feels much better, passing gas, pain improved) Physical Examination - Vital Signs Temperature: 99.5 F Blood Pressure: 140/72 Pulse: 86 Respirations: 18 Pulse Ox (%): 95 - Physical Exam General: Alert, In no apparent distress, Cooperative Respiratory: Clear to auscultation bilaterally, Normal air movement Gastrointestinal: Other (soft, mild appropriate TTP, ND, incisions clean and dry ) - Studies Laboratory Data (last 24 hrs) 02/03/19 19:50: WBC 14.0 H, Hgb 14.4, Hct 43.2, Plt Count 360 02/03/19 19:50: Sodium 136, Potassium 3.5, BUN 8, Creatinine 0.99, Glucose 97, Total Bilirubin 1.7 H, AST 60 H, ALT 78, Alkaline Phosphatase 113, Lipase 67 L Assessment And Plan - Current Problems (Diagnosis) (1) Transaminitis Current Visit: Yes Status: Acute Plan: - Serial exams - IV hydration - pain control - zosyn - HIDA scan today - will restart clears after HIDA if appropriate
--- NOTE | 2019-02-04 11:52 | RAD REPORT ---
EXAM DESCRIPTION: NM - Hepatobiliary System W/ Ph - 02/04/2019 11:38 am CLINICAL HISTORY: Abdominal pain, abnormal lab values, laparoscopic cholecystectomy February 08 COMPARISON: None. TECHNIQUE: The patient was administered 5.9 mCi Tc99m Choletec. Imaging of the right upper quadrant was performed initially for up to 60 minutes. FINDINGS: There is homogeneous uptake of radiopharmaceutical throughout the liver. There is no delay in visualization of the biliary tree or duodenum. Retrograde movement of the radiopharmaceutical into the stomach is observed. This is a normal variant . No evidence of a bile leak. IMPRESSION: Normal post cholecystectomy HIDA scan.
[2019-02-05] MEDS: HYDROCODONE/APAP 7.5/325 MG TAB PO PRN ×2 (00:04→11:54)
[2019-02-05] MEDS: Ringers Lactate 1,000 ML IV SCH ×2 (03:32→14:08)
[2019-02-05 04:18] LABS: Basophils % 0.7 % (0-1.3); Hematocrit 34.5 % (39.6-49.0); Lymphocytes % 22.1 % (15.3-44.8); RBC Red Blood Cell Count 4.24 M/uL (4.33-5.43)
[2019-02-05 04:29] LABS: ALT/SGPT 75 U/L (12-78); AST/SGOT 47 U/L (15-37); Albumin 3.2 g/dL (3.4-5.0); Alkaline Phosphatase 114 U/L (45-117); BUN Blood Urea Nitrogen 7 mg/dL (7-18); Bicarbonate 29 mmol/L (21-32); Bilirubin Total 0.8 mg/dL (0.2-1.0); Glucose Level 88 mg/dL (74-106); Phosphorus 3.4 mg/dL (2.5-4.9); Potassium 3.8 mmol/L (3.5-5.1); Protein, Total 6.9 g/dL (6.4-8.2); Sodium Level 138 mmol/L (136-145)
[2019-02-05] MEDS ORDERED: POTASSIUM 25 MEQ EFFERV TAB PO ONE (06:44)
[2019-02-05] MEDS: INSULIN -REGULAR HUMAN 50 UNIT/0.5 ML ML SQ SCH ×2 (07:30→11:30)
[2019-02-05 08:49] VITALS: TEMP 97.1
[2019-02-05 09:17] VITALS: O2SAT 96
[2019-02-05] MEDS: ENOXAPARIN 40 MG/0.4 ML SQ SCH (09:33)
--- NOTE | 2019-02-05 10:28 | RAD REPORT ---
EXAM DESCRIPTION: MRI - Cholangiogram - 02/05/2019 9:02 am CLINICAL HISTORY: Abdominal pain, recent cholecystectomy, possible choledocholithiasis COMPARISON: HIDA scan February 04, CT February 03 TECHNIQUE: Axial and coronal heavily T2 weighted sequences were obtained. Coronal T2 HASTE fat satur ation static and coronal multiplane reconstruction imaging generated and reviewed. Horizontal and hal tical axis rotational views obtained using maximum intensity projection (MIP) protocol. FINDINGS: Gallbladder is absent. Minimal T2 signal in the gallbladder fossa is normal for recent keturah wm. No intrahepatic or extrahepatic biliary tree dilatation. No duct stone or other filling defect identi fiable. No abnormal collection that would suspect a bile leak. IMPRESSION: Negative post cholecystectomy MRCP.
[2019-02-05 13:45] VITALS: BP 149/82
--- NOTE | 2019-02-05 15:08 | P.DS ---
Admission Date: 02/03/19 Discharge Date: 02/05/19 Disposition: ROUTINE DISCHARGE Discharge Condition: GOOD - Problems (1) Transaminitis Current Visit: Yes Status: Acute Brief History of Present Illness: Patient is a 28 year old man who presents s/p laparoscopic cholecystectomy POD 1 with worsening abdominal pain Hospital Course: Patient had elevated transaminitis workup included HIDA and MRCP which revealed no post op complications, his LFts returned to normal, he tolerated diet, pain well controlled and felt much better Vital Signs/Physical Exam: Temp Pulse Resp BP Pulse Ox 97.1 F 85 16 149/82 H 98 02/05/19 12:00 02/05/19 12:00 02/05/19 12:54 02/05/19 12:00 02/05/19 12:54 General: Alert, In no apparent distress, Cooperative HEENT: Normocephalic, Mucous membr. moist/pink Neck: Supple Respiratory: Normal air movement Cardiovascular: No edema, Normal pulses, Regular rate/rhythm Gastrointestinal: Other (soft, mild appropriate TTP, ND< incisions clean) Musculoskeletal: No clubbing, No swelling, No contractures Integumentary: No rashes Laboratory Data at Discharge: WBC 9.2 K/uL (4.3-10.9) 02/05/19 03:46 Hgb 11.7 g/dL (13.6-17.9) L 02/05/19 03:46 Hct 34.5 % (39.6-49.0) L 02/05/19 03:46 Plt Count 317 K/uL (152-406) 02/05/19 03:46 Sodium 138 mmol/L (136-145) 02/05/19 03:46 Potassium 3.8 mmol/L (3.5-5.1) 02/05/19 03:46 BUN 7 mg/dL (7-18) 02/05/19 03:46 Creatinine 0.75 mg/dL (0.55-1.3) 02/05/19 03:46 Glucose 88 mg/dL (74-106) 02/05/19 03:46 Phosphorus 3.4 mg/dL (2.5-4.9) 02/05/19 03:46 Magnesium 2.0 mg/dL (1.8-2.4) 02/05/19 03:46 Total Bilirubin 0.8 mg/dL (0.2-1.0) 02/05/19 03:46 AST 47 U/L (15-37) H 02/05/19 03:46 ALT 75 U/L (12-78) 02/05/19 03:46 Alkaline Phosphatase 114 U/L (45-117) 02/05/19 03:46 Lipase 67 U/L (73-393) L 02/03/19 19:50 Home Medications: Hydrocodone 5/APAP 325 [[place] 5/325] 1 tab PO Q6H PRN #20 tab 02/02/19 Diet: [place] Activity: No lifting more than 10 lbs Followup: Warren Coronado MD [ACTIVE - CAN ADMIT] -
== END 2019-02-05 16:28 | disposition home or self-care (01) ==
LOC: ER 19:07 → 4TH 21:16
PROVIDERS: ADMIT Surgery; ATTEND Surgery
DX: R74.0 Nonspecific elevation of levels of transaminase and lactic acid dehydrogenase [LDH] (principal); Z90.49 Acquired absence of other specified parts of digestive tract
CPT/HCPCS: 96365; 96361; 87040 ×2; 85025 ×3; 80048; 36415 ×2; 83735 ×2; 84100 ×2; 82962 ×7; 80076; 83690; 80053 ×2; 74177; 74181; 94760 ×4; 78227; 96375; 99285; Q9967; J1650 ×2; J3010; J2543; J1170 ×5; J7120 ×6; J7030; J0694; A9537; G0378 ×4; 81003; 81015

== ENCOUNTER 2023-02-27 16:14 | Inpatient (IN) | payer BC ==
[2023-02-27 16:46] LABS: Specific Gravity 1.019 (1.005-1.030); Urine Bilirubin NEGATIVE (Negative); Urine Blood Negative (Negative); Urine Clarity Clear (Clear); Urine Color Light-Yellow (Yellow); Urine Glucose NEGATIVE (Negative); Urine Protein NEGATIVE (Negative); Urine Urobilinogen Normal (Normal); Urine pH 5.5 (5.0-7.0)
[2023-02-27 17:31] LABS: Absolute Lymphocytes (CBC) 1.3 K/uL (0.7-4.9); Hematocrit 39.8 % (39.6-49.0); Lymphocytes % 9.6 % (15.3-44.8); MCV 81.5 fL (80-100); MPV 8.2 fL (7.6-11.3); Platelets 347 thou/uL (152-406); RBC Red Blood Cell Count 4.88 M/uL (4.33-5.43)
[2023-02-27] MEDS ORDERED: MORPHINE 4 MG/ML SYR ONE (17:35)
[2023-02-27] MEDS ORDERED: ONDANSETRON 4 MG/2 ML VIAL ONE (17:35)
[2023-02-27] MEDS ORDERED: NA CHLORIDE 0.9% 1,000 ML ONE (17:35)
[2023-02-27 17:42] LABS: Albumin 3.5 g/dL (3.4-5.0); Bilirubin Total 0.3 mg/dL (0.2-1.0); Potassium 3.7 mEq/L (3.5-5.1); Protein, Total 7.5 g/dL (6.4-8.2)
--- NOTE | 2023-02-27 17:50 | RAD REPORT ---
EXAM DESCRIPTION: US - Scrotum Testicles - 02/27/2023 5:16 pm CLINICAL HISTORY: testicular pain COMPARISON: No comparisons TECHNIQUE: Sonographic grayscale and color flow images of the scrotum were obtained. FINDINGS: The right testicle measures 4.8 x 2.7 x 4.0 cm. No intratesticular masses or evidence of t esticular torsion. The left testicle measures 4.9 x 2.6 x 3.0 cm. No intratesticular masses or evidence of testicular to rsion. Both epididymides are normal in size and appearance. No pathologic fluid collections. IMPRESSION: Normal testicular ultrasound.
--- NOTE | 2023-02-27 19:09 | EDPHYS ---
Physician Documentation [facility] Name: Neymar Arndt Age: 32 yrs Sex: Male : 1990 Arrival Date: 02/27/2023 Time: 16:14 Bed 4 Private MD: ED Physician Edd Condon HPI: 02/27 19:03 This 32 yrs old Male presents to ER via Ambulatory with complaints of Testicular Pain. rn 19:05 The patient presents with abdominal pain in the lower abdomen. rn 19:05 Onset: The symptoms/episode began/occurred 4 day(s) ago. The symptoms do not radiate. rn Associated signs and symptoms: Pertinent negatives: fever. Severity of pain: At its worst the pain was moderate in the emergency department the pain is unchanged. Patient reports lower abdominal pain and testicular pain that began a few days ago. Low-grade fever and anorexia.. Historical: - Allergies: 16:32 Ibuprofen; cm10 - PMHx: 16:32 Stomach Ulcers; cm10 - PSHx: 16:32 Cholecystectomy; cm10 - Immunization history:: Adult Immunizations unknown. - Social history:: Smoking status: Patient denies any tobacco usage or history of. - Family history:: not pertinent. - Hospitalizations: : No recent hospitalization is reported. ROS: 19:05 Constitutional: Positive for fever Cardiovascular: Negative for chest pain, rn palpitations, and edema, Respiratory: Negative for shortness of breath, cough, wheezing, and pleuritic chest pain, Abdomen/GI: Positive for abdominal pain and nausea : Positive for testicular pain Exam: 19:05 Constitutional: This is a well developed, well nourished patient who is awake, alert, rn and in no acute distress. Cardiovascular: Tachycardic, regular. Respiratory: No increased work of breathing, no retractions or nasal flaring. Abdomen/GI: Soft, mild tenderness left lower quadrant with guarding. No peritoneal signs Vital Signs: 16:30 BP 161 / 96; Pulse 108; Resp 18 S; Temp 99.7(O); Pulse Ox 98% on R/A; Weight 142.88 kg; cm10 Height 6 ft. 2 in. ; Pain 8/10; 17:46 BP 154 / 98; Pulse 104; Resp 18; Pulse Ox 99% on R/A; mb9 19:00 BP 148 / 98; Pulse 107; Pulse Ox 95% on R/A; km8 20:00 BP 152 / 81; Pulse 99; Pulse Ox 99% on R/A; km8 16:30 Body Mass Index 40.44 (142.88 kg, 187.96 cm) cm10 16:30 Pain Scale: Adult cm10 MDM: 16:31 Patient medically screened. rn 19:05 Differential diagnosis: appendicitis, bowel obstruction, diverticulitis, rn Ureterolithiasis, urinary tract infection. Data reviewed: vital signs, nurses notes, lab test result(s), radiologic studies, CT scan, and as a result, I will discharge patient. Management of patient was discussed with the following: Risk Management Intern: Consulted with Dr. Coronado, requests NPO, karenn, admission to hospitalist. Counseling: I had a detailed discussion with the patient and/or guardian regarding the historical points, exam findings, and any diagnostic results supporting the discharge/admit diagnosis, lab results, radiology results, the need for further work-up and treatment in the hospital. Response to treatment: the patient's symptoms have mildly improved after treatment, and as a result, I will admit patient. 02/27 16:32 Order name: Urinalysis w/ reflexes; Complete Time: 16:57 rn 02/27 17:03 Order name: CBC with Diff; Complete Time: 18:18 rn 02/27 17:03 Order name: CMP; Complete Time: 18:18 rn 02/27 17:03 Order name: Lipase; Complete Time: 18:18 rn 02/27 19:18 Order name: CBC with Automated Diff [facility] 02/27 19:18 Order name: CBC with Automated Diff [facility] 02/27 19:18 Order name: Comprehensive Metabolic Panel [facility] 02/27 19:18 Order name: Comprehensive Metabolic Panel [facility] 02/27 16:32 Order name: US Scrotum Testicles; Complete Time: 18:18 rn 02/27 17:03 Order name: CT Abd/Pelvis - IV Contrast Only rn 02/27 19:18 Order name: CONS Physician Consult [facility] 02/27 17:03 Order name: IV Saline Lock; Complete Time: 17:33 rn 02/27 17:03 Order name: Labs collected and sent; Complete Time: 17:33 rn Administered Medications: 17:34 Drug: NS 0.9% IV 1000 ml IV at 1 bolus Per protocol; 1000 mL bolus Route: IV; Rate: 1 iw bolus; Site: right antecubital; 21:06 Follow up: IV Status: Infusion continued upon admission km8 17:34 Drug: Ondansetron IVP 4 mg IVP once; over 2 minutes Route: IVP; Site: right antecubital;iw 18:12 Follow up: Response: No adverse reaction mb9 17:34 Drug: morphine IVP or IV 4 mg IVP once over 4 mins Route: IVP; Infused Over: 4 mins; iw Site: right antecubital; 18:13 Follow up: Response: No adverse reaction mb9 19:26 Drug: Piperacillin-Tazobactam IVPB 3.375 grams IVPB once over 60 mins; (mix in NS 100 km8 mL) Route: IVPB; Infused Over: 60 mins; Site: right antecubital; 20:27 Follow up: Response: No adverse reaction; IV Status: Completed infusion; IV Intake: km8 100ml 20:32 Drug: Acetaminophen PO 1000 mg PO once Route: PO; km8 20:34 Follow up: Response: No adverse reaction km8 Disposition Summary: 02/27/23 19:09 Hospitalization Ordered Notes: Hospitalization Status: Inpatient Admission rn Provider: Stuart Hodges rn Location: Telemetry/MedSurg (Inpatient) rn Condition: Stable rn Problem: new rn Symptoms: have improved rn Bed/Room Type: Standard rn Room Assignment: 225(02/27/23 20:19) mw Diagnosis - Acute diverticulitis with perforation, no abscess or bleeding rn Forms: - Medication Reconciliation Form rn - SBAR form rn - Leadership Thank You Letter rn Signatures: Dispatcher [employer] Tamera Ford RN Kenya Medel RN RN Edd Aiken MD MD rn Peltier, Brian RN Nanette Knapp RN RN Sandhya Dumont RN RN [facility] Monique Wills RN mb9 Corrections: (The following items were deleted from the chart) 20:19 19:09 rn maikel
--- NOTE | 2023-02-27 19:09 | ER ---
Nurse's Notes [facility] Name: Neymar Arndt Age: 32 yrs Sex: Male : 1990 Arrival Date: 02/27/2023 Time: 16:14 Bed 4 Private MD: Diagnosis: Acute diverticulitis with perforation, no abscess or bleeding Presentation: 02/27 16:30 Chief complaint: Patient states: bilateral testicular pain onset . Pt states cm10 that it hurts to walk and he is also having suprapubic pain. Pt states that the pain is relieved with urination and passing gas. Coronavirus screen: Vaccine status: Patient reports being unvaccinated. Client denies travel out of the [place] in the last 14 days. Ebola Screen: Patient denies travel to an Ebola-affected area in the 21 days before illness onset. No symptoms or risks identified at this time. Initial Sepsis Screen: Does the patient meet any 2 criteria? No. Patient's initial sepsis screen is negative. Does the patient have a suspected source of infection? No. Patient's initial sepsis screen is negative. Risk Assessment: Do you want to hurt yourself or someone else? Patient reports no desire to harm self or others. Onset of symptoms was February 27, 2023. 16:30 Method Of Arrival: Ambulatory cm10 16:30 Acuity: ELOY 3 cm10 Historical: - Allergies: 16:32 Ibuprofen; cm10 - PMHx: 16:32 Stomach Ulcers; cm10 - PSHx: 16:32 Cholecystectomy; cm10 - Immunization history:: Adult Immunizations unknown. - Social history:: Smoking status: Patient denies any tobacco usage or history of. - Family history:: not pertinent. - Hospitalizations: : No recent hospitalization is reported. Screenin:[address] [facility] ED Fall Risk Assessment (Adult) History of falling in the last 3 months, mb9 including since admission No falls in past 3 months (0 pts) Confusion or Disorientation No (0 pts) Intoxicated or Sedated No (0 pts) Impaired Gait No (0 pts) Mobility Assist Device Used No (0 pt) Altered Elimination Yes (1 pt) Score/Fall Risk Level 0 - 2 = Low Risk Oriented to surroundings, Maintained a safe environment, Educated pt \T\ family on fall prevention, incl call for assistance when getting out of bed. Abuse screen: Denies threats or abuse. Nutritional screening: No deficits noted. Tuberculosis screening: No symptoms or risk factors identified. Assessment: 16:40 General: Appears in no apparent distress. Behavior is calm, cooperative. Pain: mb9 Complains of pain in pelvis Pain does not radiate. Quality of pain is described as throbbing, Pain began 2-3 days ago. Is continuous. Neuro: Valenzuela Agitation-Sedation Scale (RASS): 0 - Alert and Calm Level of Consciousness is awake, alert, obeys commands, Oriented to person, place, time, situation, Appropriate for age. Cardiovascular: Patient's skin is warm and dry. Respiratory: Airway is patent Respiratory effort is even, unlabored, Respiratory pattern is regular, symmetrical. GI: Abdomen is round non-distended, Bowel sounds present X 4 quads. Abd is soft X 4 quads Abdomen is tender to palpation in suprapubic area. : Denies burning with urination, inability to void. EENT: No signs and/or symptoms were reported regarding the EENT system. Derm: Skin is pink, warm \T\ dry. Musculoskeletal: Range of motion: intact in all extremities. 17:59 Reassessment: pt taken to CT via wheelchair. mb9 18:33 Reassessment: No changes from previously documented assessment. Patient and/or family mb9 updated on plan of care and expected duration. Pain level reassessed. Patient is alert, oriented x 3, equal unlabored respirations, skin warm/dry/pink. 19:26 Reassessment: Patient appears in no apparent distress at this time. No changes from km8 previously documented assessment. Patient and/or family updated on plan of care and expected duration. Pain level reassessed. Patient is alert, oriented x 3, equal unlabored respirations, skin warm/dry/pink. pt given warm blanket and updated on plan of care and how the admission process works; pt denies any other needs at this time. 20:12 Reassessment: Patient appears in no apparent distress at this time. No changes from km8 previously documented assessment. Patient and/or family updated on plan of care and expected duration. Pain level reassessed. Patient is alert, oriented x 3, equal unlabored respirations, skin warm/dry/pink. still waiting on room assignment for hospital stay. 20:28 General: attempted to call report; no answer at this time;. km8 Vital Signs: 16:30 BP 161 / 96; Pulse 108; Resp 18 S; Temp 99.7(O); Pulse Ox 98% on R/A; Weight 142.88 kg; cm10 Height 6 ft. 2 in. ; Pain 8/10; 17:46 BP 154 / 98; Pulse 104; Resp 18; Pulse Ox 99% on R/A; mb9 19:00 BP 148 / 98; Pulse 107; Pulse Ox 95% on R/A; km8 20:00 BP 152 / 81; Pulse 99; Pulse Ox 99% on R/A; km8 16:30 Body Mass Index 40.44 (142.88 kg, 187.96 cm) cm10 16:30 Pain Scale: Adult cm10 ED Course: 16:16 Patient arrived in ED. rg4 16:31 Edd Condon MD is Attending Physician. rn 16:32 Triage completed. cm10 16:33 Arm band placed on Patient placed in an exam room, on a stretcher. cm10 16:35 Monique Wills, MADDISON is Primary Nurse. mb9 16:40 Urinalysis w/ reflexes Sent. mb9 16:41 Placed in gown. Bed in low position. Call light in reach. Side rails up X 1. Client mb9 placed on continuous cardiac and pulse oximetry monitoring. NIBP monitoring applied. 17:18 US Scrotum Testicles In Process Unspecified. EDMS 18:21 CT Abd/Pelvis - IV Contrast Only In Process Unspecified. EDMS 19:08 Stuart Hodges MD is Hospitalizing Provider. rn 20:20 No provider procedures requiring assistance completed. Patient admitted, IV remains in km8 place. 20:21 Provided Education on: admission process. [facility] Administered Medications: 17:34 Drug: NS 0.9% IV 1000 ml IV at 1 bolus Per protocol; 1000 mL bolus Route: IV; Rate: 1 iw bolus; Site: right antecubital; 21:06 Follow up: IV Status: Infusion continued upon admission [facility] 17:34 Drug: Ondansetron IVP 4 mg IVP once; over 2 minutes Route: IVP; Site: right antecubital;iw 18:12 Follow up: Response: No adverse reaction [facility] 17:34 Drug: morphine IVP or IV 4 mg IVP once over 4 mins Route: IVP; Infused Over: 4 mins; iw Site: right antecubital; 18:13 Follow up: Response: No adverse reaction mb9 19:26 Drug: Piperacillin-Tazobactam IVPB 3.375 grams IVPB once over 60 mins; (mix in NS 100 km8 mL) Route: IVPB; Infused Over: 60 mins; Site: right antecubital; 20:27 Follow up: Response: No adverse reaction; IV Status: Completed infusion; IV Intake: km8 100ml 20:32 Drug: Acetaminophen PO 1000 mg PO once Route: PO; km8 20:34 Follow up: Response: No adverse reaction km8 Medication: 16:42 VIS not applicable for this client. mb9 Intake: 20:27 IV: 100ml; Total: 100ml. km8 Outcome: 19:09 Decision to Hospitalize by Provider. rn 21:05 Admitted to Med/surg accompanied by tech, via wheelchair, room 225, Report called to pepper Nuñez RN 21:05 Condition: good 21:05 Discharge instructions given to patient, Instructed on the need for admit, Demonstrated understanding of instructions, 21:33 Patient left the ED. bp Signatures: Dispatcher [employer] Kenya Lopez RN RN iw Edd Condon MD MD rn Garcia, Rubi rg4 Mehran Torer RN RN bp Breneman, Mary Beth RN RN mb9 Nanette Rivas, RN RN cm10 Sandhya Espino RN RN km8
--- NOTE | 2023-02-27 19:10 | RAD REPORT ---
EXAM DESCRIPTION: CT - Abdomen Pelvis W Contrast - 02/27/2023 6:19 pm CLINICAL HISTORY: ABD PAIN COMPARISON: Abdomen Pelvis W Contrast dated 02/03/2019; Abdomen Pelvis W Contrast dated 02/02/20 TECHNIQUE: Thin cut axial CT imaging of the abdomen and pelvis was performed following intravenous a dministration of 100 mL Isovue 300. Multiplanar reformats were generated and reviewed. All CT scans are performed using dose optimization technique as appropriate and may include automated exposure control or mA/KV adjustment according to patient size. FINDINGS: No suspicious findings in the lung bases. The liver, spleen, adrenal glands, and pancreas show no suspicious findings. Gallbladder was surgical ly removed Symmetric renal function is seen with no hydronephrosis or suspicious renal mass. No dilated bowel loops. Wall thickening and inflammatory changes in the region of the superiorly dire cted proximal sigmoid diverticulum. Linear tract and free-air extending superior to this, for approxi mately 2.5 cm. No adjacent fluid collections. No other evidence of free air, or free fluid. No suspic ious mass or bulky lymphadenopathy. Small supraumbilical and left inguinal fat containing hernias. Th e urinary bladder is without significant finding. No suspicious bony findings. IMPRESSION: Sequelae of acute proximal sigmoid diverticulitis with small perforation and free air tr acking superiorly for approximately 2.5 cm. No paracolic fluid collections. The findings were communicated to Edd Condon on 02/27/2023 at 19:02 hours.
[2023-02-27] MEDS ORDERED: ACETAMINOPHEN 500 MG TAB PO PRN (19:13)
[2023-02-27] MEDS ORDERED: MORPHINE 2 MG/ML SYR IV PRN (19:13)
[2023-02-27] MEDS ORDERED: ONDANSETRON 4 MG/2 ML VIAL IV PRN (19:13)
[2023-02-27] MEDS ORDERED: HYDROCODONE/APAP 5/325 MG TAB PO PRN (19:17)
--- NOTE | 2023-02-27 19:19 | P.HP ---
Certification for Inpatient Patient admitted to: Inpatient With expected LOS: >2 Midnights Patient will require the following post-hospital care: None Practitioner: I am a practitioner with admitting privileges, knowledge of patient current condition, hospital course, and medical plan of care. Services: Services provided to patient in accordance with Admission requirements found in Title 42 Section 412.3 of the Code of Federal Regulations Patient History Date of Service: 02/27/23 Reason for admission: Abdominal Pain History of Present Illness: 32 yrs old Male with no significant past medical history other than GERD presents to ER via Ambulatory with complaints of Testicular Pain and lower abdominal pain which has been going on for last 3 -4 days. Initially was started as testicular pain on the left side radiating to lower abdomen. Denies any chills. No nausea vomiting or diarrhea. Denies any melena. Patient complains of anorexia and subjective fever Also was constipated for the last 2 days Patient was assessed in the ER and work-up was consistent with diverticulitis with microperforation and was admitted for further management. Allergies ibuprofen Allergy (Verified 02/01/19 16:11) Itching/Hives/Rash Home medications list reviewed: Yes Home Medications: Hydrocodone 5/APAP 325 [[place] 5/325] 1 tab PO Q6H PRN #20 tab 02/02/19 - Past Medical/Surgical History Diabetic: No Past Medical History: Reviewed- Non-Contributory -: stomach ulcers Past Surgical History: Reviewed- Non-Contributory -: left shoulder surgery -: cholecystectomy - Family History Family History: Reviewed- Non-Contributory - Family History Mother -: Heart disease, Diabetes Father -: Heart disease - Social History Smoking Status: Never smoker Alcohol use: Yes CD- Drugs: No Caffeine use: Yes Review of Systems 10-point ROS is otherwise unremarkable General: Fever, Unremarkable Eyes: Unremarkable ENT: Unremarkable Respiratory: Unremarkable Cardiovascular: Unremarkable Gastrointestinal: Abdominal Pain, Constipation Genitourinary: Unremarkable Musculoskeletal: Unremarkable Integumentary: Unremarkable Neurological: Unremarkable Physical Examination - Vital Signs Temperature: 98.9 F Blood Pressure: 152/90 Pulse: 78 Respirations: 18 Pulse Ox (%): 98 - Physical Exam General: Alert, In no apparent distress, Oriented x3 HEENT: Atraumatic, Normocephalic Neck: Supple, No Thyromegaly Respiratory: Clear to auscultation bilaterally, Normal air movement Cardiovascular: No edema, Normal pulses, Regular rate/rhythm, Normal S1 S2 Capillary refill: <2 Seconds Gastrointestinal: Soft and benign, W/out hepatosplenomegaly, Tenderness Musculoskeletal: No clubbing, No swelling Integumentary: No rashes, No breakdown Neurological: Normal gait, Normal strength at 5/5 x4 extr, Sensation intact, Cranial nerves 3-12 intact, Normal reflexes 2+ Lymphatics: No axilla or inguinal lymphadenopathy - Studies Laboratory Data (last 24 hrs) 02/27/23 02/27/23 17:10 17:10 WBC 13.80 H Hgb 13.0 L Hct 39.8 Plt Count 347 Sodium 138 Potassium 3.7 BUN 11 Creatinine 0.95 Glucose 113 H Total Bilirubin 0.3 AST 20 ALT 38 Alkaline Phosphatase 91 Lipase 26 Imagings Data: Name: NEYDA MARQUIS Acct Number: [id number] : 1990 Age: 32 Sex: M Unit Number: [id number] Ord Phys: Edd Condon MD Prim Care Dr: Andrew Ford MD Status: [facility] ER Exam Date: 02/27/23 Reason for Exam: ABD PAIN Report Status: Signed EXAM DESCRIPTION: CT - Abdomen Pelvis W Contrast - 02/27/2023 6:19 pm CLINICAL HISTORY: ABD PAIN COMPARISON: Abdomen Pelvis W Contrast dated 02/03/2019; Abdomen Pelvis W Contrast dated 02/01/2019 TECHNIQUE: Thin cut axial CT imaging of the abdomen and pelvis was performed following intravenous administration of 100 mL Isovue 300. Multiplanar reformats were generated and reviewed. All CT scans are performed using dose optimization technique as appropriate and may include automated exposure control or mA/KV adjustment according to patient size. FINDINGS: No suspicious findings in the lung bases. The liver, spleen, adrenal glands, and pancreas show no suspicious findings. Gallbladder was surgically removed Symmetric renal function is seen with no hydronephrosis or suspicious renal mass. No dilated bowel loops. Wall thickening and inflammatory changes in the region of the superiorly directed proximal sigmoid diverticulum. Linear tract and free-air extending superior to this, for approximately 2.5 cm. No adjacent fluid collections. No other evidence of free air, or free fluid. No suspicious mass or bulky lymphadenopathy. Small supraumbilical and left inguinal fat containing hernias. The urinary bladder is without significant finding. No suspicious bony findings. IMPRESSION: Sequelae of acute proximal sigmoid diverticulitis with small perforation and free air tracking superiorly for approximately 2.5 cm. No paracolic fluid collections. Assessment and Plan - Problems (Diagnosis) (1) Diverticulitis large intestine Current Visit: Yes Status: Acute Plan: Diverticulitis sigmoid with microperforation and free air Pain control Started on IV antibiotic Zosyn Surgery was consulted by ER We will keep n.p.o. for now IV hydration Awaiting further recommendations per surgery Monitor closely Qualifiers: Diverticulitis bleeding: without bleeding Diverticulitis complication: with perforation and without abscess Qualified Code(s): K57.20 - Diverticulitis of large intestine with perforation and abscess without bleeding (2) Leucocytosis Current Visit: Yes Status: Acute Plan: Monitor CBC daily Continue antibiotics We will obtain cultures (3) GERD (gastroesophageal reflux disease) Current Visit: Yes Status: Acute Plan: We will start on PPI Monitor closely Discharge Plan: Home Plan to discharge in: 48 Hours - Advance Directives Does patient have a Living Will: No Does patient have a Durable POA for Healthcare: No - Code Status/Comfort Care Code Status: Full Code Physician Review: Patient Assessed, Agree with Above Assessment and Plan Time Spent Managing Pts Care (In Minutes): 48
[2023-02-27] MEDS ORDERED: NA CHLORIDE 0.9% 100 ML ONE (19:30)
[2023-02-27] MEDS ORDERED: PIPERACIL/TAZO 3.375 GM VIAL IV ONE (19:30)
[2023-02-27] MEDS ORDERED: ACETAMINOPHEN 500 MG TAB ONE (20:44)
[2023-02-27 22:17] VITALS: BMI 40.4
[2023-02-27] MEDS: D5 0.45 NS 1,000 ML IV SCH (22:20)
[2023-02-28] MEDS: PIPER TAZO 3.375 GM in NA CHLORIDE 0.9% 100 ML IV SCH ×3 (01:01→16:09)
[2023-02-28 03:04] LABS: Absolute Lymphocytes (CBC) 1.8 K/uL (0.7-4.9); Lymphocytes % 11.1 % (15.3-44.8); MCV 80.8 fL (80-100); MPV 8.6 fL (7.6-11.3); Platelets 315 thou/uL (152-406); RBC Red Blood Cell Count 4.58 M/uL (4.33-5.43)
[2023-02-28 03:24] LABS: Albumin 3.1 g/dL (3.4-5.0); Potassium 3.6 mEq/L (3.5-5.1); Protein, Total 6.7 g/dL (6.4-8.2)
[2023-02-28] MEDS: D5 0.45 NS 1,000 ML IV SCH ×2 (06:00→09:49)
--- NOTE | 2023-02-28 15:00 | P.PN ---
Subjective Date of Service: 02/28/23 Chief Complaint: Abdominal Pain Patient reports abdominal pain only with movement and palpation. He denies any nausea. No vomiting. He has been afebrile. Physical Examination - Vital Signs Temperature: 98.4 F Blood Pressure: 127/70 Pulse: 96 Respirations: 17 Pulse Ox (%): 97 - Studies Laboratory Data (last 24 hrs) 02/27/23 02/27/23 17:10 17:10 WBC 13.80 H Hgb 13.0 L Hct 39.8 Plt Count 347 Sodium 138 Potassium 3.7 BUN 11 Creatinine 0.95 Glucose 113 H Total Bilirubin 0.3 AST 20 ALT 38 Alkaline Phosphatase 91 Lipase 26 Assessment And Plan - Plan Physical Exam General: Alert, In no apparent distress, Oriented x3 Respiratory: Clear to auscultation bilaterally, Normal air movement Cardiovascular: No edema, Normal pulses, Regular rate/rhythm, Normal S1 S2 Gastrointestinal: Soft and benign, W/out hepatosplenomegaly, Tenderness on palpation. Mild rebound tenderness. Integumentary: No rashes, No breakdown Neurological: Normal gait, Normal strength at 5/5 x4 extr, Sensation intact, Cranial nerves 3-12 intact, Normal reflexes 2+ Lymphatics: No axilla or inguinal lymphadenopathy Diverticulitis large intestine/intestinal perforation Diverticulitis sigmoid with microperforation and free air Pain control Continue IV Zosyn Surgery was consulted. Patient seen by Dr. Coronado who recommended nonsurgical treatment IV antibiotics for now. We will keep n.p.o. for now IV hydration Serial abdominal examination. Leucocytosis Monitor CBC daily Continue antibiotics Blood cultures are pending. GERD (gastroesophageal reflux disease) Continue IV PPI Monitor closely Discharge Plan: Home Plan to discharge in: 48-72 Hours
[2023-02-28] MEDS ORDERED: SODIUM CHLORIDE 0.9% 10ML INJ IV PRN (15:03)
[2023-02-28] MEDS ORDERED: D5NS KCL 20MEQ 20 MEQ/1,000 ML BAG IV SCH (16:00)
[2023-02-28] MEDS: D5NS KCL 20MEQ 20 MEQ/1,000 ML BAG IV SCH (20:00)
--- NOTE | 2023-02-28 21:54 | CON ---
Date of Consultation: 02/28/2023 Brief History Of Present Illness: The patient is a 32-year-old man, known to me from previous admiss ions, who presents with new onset of abdominal pain. He states the pain started several days ago, bu t got progressively worse over the past several days. He thought it was just related to perhaps food or some other inciting causative factor. However, when the pain continued to get worse, he noted th at the severity increased dramatically and as such, he came to the emergency room with the above-stat ed complaints. He stated that the pain was predominantly initially located on the testicular side on the left and in the lower abdomen, but then spread over to the lower abdominal belt like distributio n at the infraumbilical position. He did have some anorexia and subjective fever, but did not measur e it directly. Past Medical History: Significant for borderline hypertension, GERD, ulcers. Past Surgical History: Includes a laparoscopic cholecystectomy several years ago and a left shoulder surgery. Allergies: TO IBUPROFEN. Home Medications: Only include hydrocodone, but not currently taken. Family History: Significant for heart disease, diabetes in both parents. He denies smoking. Drinks alcohol recreationally. Denies recreational drug use. Review of Systems: Ten-point review of systems other than HPI, denies. Physical Examination: General: At the time of my examination, his BMI is 40. He is awake, alert, oriented. Psychiatric: Appropriate. Conversive. HEENT: Normocephalic. Sclerae icteric. Mucous membranes are moist. Oropharynx clear. Neck: Supple. No JVD. Chest: Normal expansion and excursion. Cardiovascular: Regular rate and rhythm. Pulmonary: Clear to auscultation bilaterally. Abdomen: Soft with mild left lower quadrant and suprapubic tenderness to palpation. No rebound. No guarding. No focal peritonitis. Extremities: No clubbing, cyanosis, or edema. Skin: Warm and dry. Vital Signs: At the time of my examination were blood pressure 127/70, pulse is 96, respiratory rate 17, temperature 98.4, SpO2 97% on room air. Laboratory Data: Revealed white count of 15.9, hemoglobin 12.6, hematocrit 37.0, platelet count was 3.5, neutrophils are 78%. His sodium is 137, potassium 3.6, chloride 103, carbon dioxide 29, BUN 8, creatinine 0.7, glucose is 112, total bilirubin 1.0, AST is 19, ALT 34, alkaline phosphatase was 80. His lipase is 26. UA is negative. He had a CT scan performed of the abdomen and pelvis, officially read as sequelae of acute proximal sigmoid diverticulitis with small perforation free air tracking s uperiorly for approximately 2.5 cm. No pericolic fluid collections. Ultrasound of scrotum was read as officially normal testicular ultrasound. Assessment And Plan: This is a 32-year-old male known to me from previous cholecystectomy, who prese nts now with sigmoid perforated diverticulitis. 1.IV fluid hydration. 2.Antibiotic coverage. 3.Serial abdominal exams. 4.Medical management. 5.I have explained the risks, benefits, and alternatives of nonoperative versus operative management . We will continue to attempt nonoperative management initially with antibiotic hydration and above- stated measures. If the patient is not responsive, we will discuss options with respect to surgical options going forward included, but not limited to exploratory laparotomy, possible sigmoid colectomy , colostomy creation, and other associated possibilities depending on the clinical course. I have al so explained the patient needs a colonoscopy as an outpatient when he resolves this issue, especially if he resolves it without surgical intervention necessary. The patient displayed understanding of the above stated plan and agrees to p roceed as indicated. MIHAI/CALLI Voice ID: [id number] Report ID: [id number]
[2023-02-28 23:58] VITALS: O2SAT 95
[2023-03-01] MEDS: PIPER TAZO 3.375 GM in NA CHLORIDE 0.9% 100 ML IV SCH ×3 (00:47→16:32)
[2023-03-01] MEDS: D5NS KCL 20MEQ 20 MEQ/1,000 ML BAG IV SCH ×3 (00:47→20:00)
[2023-03-01 04:22] LABS: Absolute Lymphocytes (CBC) 1.6 K/uL (0.7-4.9); Hematocrit 37.9 % (39.6-49.0); Lymphocytes % 13.1 % (15.3-44.8); MPV 8.5 fL (7.6-11.3); Platelets 334 thou/uL (152-406); RBC Red Blood Cell Count 4.62 M/uL (4.33-5.43)
[2023-03-01 04:30] LABS: Potassium 3.8 mEq/L (3.5-5.1)
--- NOTE | 2023-03-01 08:50 | P.PN ---
Date of Service: 03/01/23 Subjective: Feeling a little better today abdomen feels sore; +mild tenderness; improving hasn't needed pain medication since yesterday morning no new / worsening problems no BM yet; +flatus afebrile ROS: 10 point ROS as noted above, otherwise negative Physical Exam: GEN: Alert, oriented, NAD HEENT: Normal conjunctiva, sclera anicteric CV: Regular rate and rhythm, no edema Pulm: Nonlabored respirations on room air, clear bilaterally ABD: Soft, mild abdominal tenderness, nondistended Neuro: Normal speech, normal affect vitals reviewed Problem List: Acute proximal sigmoid diverticulitis with micro perforation GERD Acute proximal sigmoid diverticulitis with micro perforation GERD CT abdomen (02/27): acute proximal sigmoid diverticulitis with small perforation and free air tracking superiorly ~2.5 cm blood cx (02/27): NGTD General surgery consulted - Dr. Coronado serial abdominal exams Continue protonix Continue empiric Zosyn (02/28-) afebrile, leukocytosis improving f/u for outpatient colonoscopy in ~4-6 weeks PRN pain medication continue IV fluids currently NPO advance to clears later today, will confirm with Dr. Coronado Code: Full Dispo: Home , ~1-2 days
[2023-03-01] MEDS: PANTOPRAZOLE 40 MG INJ IVP SCH (09:23)
--- NOTE | 2023-03-01 18:01 | P.PN ---
Subjective Date of Service: 03/01/23 Chief Complaint: Abdominal Pain Subjective: Improving (had loose bowel movement, pain significantly improved.) Physical Examination - Vital Signs Temperature: 97.4 F Blood Pressure: 132/75 Pulse: 85 Respirations: 17 Pulse Ox (%): 96 - Physical Exam General: Alert, In no apparent distress, Cooperative Cardiovascular: Regular rate/rhythm Gastrointestinal: Other (soft, mild improved TTP, only to deep palpation @ LLQ) Assessment And Plan - Current Problems (Diagnosis) (1) Diverticulitis of large intestine with perforation Current Visit: Yes Status: Acute Plan: - start clear liquid diet, then advance to full liquid - serial exams - transition antibiotics to PO, then if improved, consider DC in AM on antibiotics - will need colonoscopy as outpatient Physician Review: Patient Assessed, Agree with Above Assessment and Plan
[2023-03-02] MEDS: PIPER TAZO 3.375 GM in NA CHLORIDE 0.9% 100 ML IV SCH (01:02)
[2023-03-02] MEDS: D5NS KCL 20MEQ 20 MEQ/1,000 ML BAG IV SCH (03:51)
[2023-03-02] MEDS ORDERED: D5NS KCL 20MEQ 20 MEQ/1,000 ML BAG IV SCH (06:40)
[2023-03-02] MEDS: CIPROFLOXACIN HCL 500 MG TAB PO SCH ×3 (09:02→21:44)
[2023-03-02] MEDS: metroNIDAZOLE 500 MG TABLET PO SCH ×4 (09:02→21:44)
[2023-03-02] MEDS: PANTOPRAZOLE 40 MG INJ IVP SCH (09:03)
--- NOTE | 2023-03-02 10:08 | P.DS ---
Admission Date: 02/27/23 Discharge Date: 03/04/23 Disposition: ROUTINE DISCHARGE Discharge Condition: GOOD Reason for Admission: Abdominal Pain Consultations: General surgery - Dr. Coronado Brief History of Present Illness: 32yo M, PMH: GERD Patient presents to ER via Ambulatory with complaints of Testicular Pain and lower abdominal pain which has been going on for last 3 -4 days. Initially was started as testicular pain on the left side radiating to lower abdomen. Denies any chills. No nausea vomiting or diarrhea. Denies any melena. Patient complains of anorexia and subjective fever. Also was constipated for the last 2 days Hospital Course: Problem List: Acute proximal sigmoid diverticulitis with micro perforation GERD Patient presented with lower abdominal pain. CT abdomen consistent with acute proximal sigmoid diverticulitis with micro perforation. General surgery was consulted and managed medically. Patient had improvement of his symptoms with bowel rest, protonix, and IV fluids. Patient was given empiric zosyn while hospitalized and is to complete 10 more days of antibiotics (cipro + flagyl) on discharge. 03/02 WBC was noted to be slightly worse. Repeat CT scan noted mildly enlarged collection of fluid and gas. After discussing with Dr. Coronado, patient was monitored for another [address] scan was taken prior to discharge to rule out any worsening. On day of discharge repeat CT scan showed no significant changes. Leukocytosis resolved on day of discharge. Patient was feeling better, abdominal pain improved, remained afebrile, leukocytosis improved and was deemed stable for discharge home. On day of discharge patient was tolerating liquid diet without issues. Recommend following up as outpatient for colonoscopy in next few weeks as previously discussed with Dr. Coronado. Follow up with Dr. Coronado in ~1-2 weeks. Continue GI soft/low residue diet until follow up. Medication: Cipro and Flagyl x 10 days Follow up: PCP 3-[address] Coronado/GI ~1-2 weeks Physical Exam: GEN: Alert, oriented, NAD HEENT: Normal conjunctiva, sclera anicteric CV: Regular rate and rhythm, no edema Pulm: Nonlabored respirations on room air, clear bilaterally ABD: Soft, minimal abdominal tenderness, nondistended Neuro: Normal speech, normal affect Vital Signs/Physical Exam: Temp Pulse Resp BP Pulse Ox 97.4 F 86 18 117/67 96 03/02/23 04:00 03/02/23 04:00 03/02/23 04:00 03/02/23 04:00 03/02/23 04:00 Laboratory Data at Discharge: WBC 12.10 thou/uL (4.3-10.9) H 03/01/23 03:32 Hgb 12.5 g/dL (13.6-17.9) L 03/01/23 03:32 Hct 37.9 % (39.6-49.0) L 03/01/23 03:32 Plt Count 334 thou/uL (152-406) 03/01/23 03:32 Sodium 137 mEq/L (136-145) 03/01/23 03:32 Potassium 3.8 mEq/L (3.5-5.1) 03/01/23 03:32 BUN 8 mg/dL (7-18) 03/01/23 03:32 Creatinine 0.85 mg/dL (0.70-1.30) 03/01/23 03:32 Glucose 105 mg/dL (74-106) 03/01/23 03:32 Total Bilirubin 1.0 mg/dL (0.2-1.0) 02/28/23 02:29 AST 19 U/L (15-37) 02/28/23 02:29 ALT 34 U/L (16-61) 02/28/23 02:29 Alkaline Phosphatase 80 U/L (45-117) 02/28/23 02:29 Lipase 26 U/L (13-75) 02/27/23 17:10 Home Medications: Hydrocodone 5/APAP 325 [[place] 5/325] 1 tab PO Q6H PRN #20 tab 02/02/19 Ciprofloxacin HCl [Cipro] 500 mg PO BID 10 Days #20 tab 03/02/23 metroNIDAZOLE [Metronidazole] 500 mg PO Q8H 10 Days #30 tab 03/02/23 New Medications: Ciprofloxacin HCl [Cipro] 500 mg PO BID 10 Days #20 tab metroNIDAZOLE [Metronidazole] 500 mg PO Q8H 10 Days #30 tab Physician Discharge Instructions: Patient presented with lower abdominal pain. CT abdomen consistent with acute proximal sigmoid diverticulitis with micro perforation. General surgery was consulted and managed medically. Patient had improvement of his symptoms with bowel rest, protonix, and IV fluids. Patient was given empiric zosyn while hospitalized and is to complete 10 more days of antibiotics (cipro + flagyl) on discharge. 03/02 WBC was noted to be slightly worse. Repeat CT scan noted mildly enlarged collection of fluid and gas. Discussed with Dr. Coronado and recommended to monitor for another 24-48 hours and to repeat CT scan prior to discharge to rule out any worsening. On day of discharge repeat CT scan showed no significant changes. Leukocytosis resolved on day of discharge. Patient was feeling better, abdominal pain improved, remained afebrile, leukocytosis improved and was deemed stable for discharge home. On day of discharge patient was tolerating liquid diet without issues. Recommend following up as outpatient for colonoscopy in next few weeks as previously discussed with Dr. Coronado. Follow up with Dr. Coronado in ~1-2 weeks. Continue GI soft/low residue diet until follow up. Medication: Cipro and Flagyl x 10 days Follow up: PCP 3-[address] Coronado/GI ~1-2 weeks Diet: Low sodium Followup: Andrew Ford MD [Primary Care Provider] - Time spent managing pt's care (in minutes): 45
[2023-03-02 10:23] LABS: Absolute Lymphocytes (CBC) 1.5 K/uL (0.7-4.9); Hematocrit 37.4 % (39.6-49.0); Lymphocytes % 10.8 % (15.3-44.8); MCV 81.6 fL (80-100); MPV 7.9 fL (7.6-11.3); Platelets 417 thou/uL (152-406); RBC Red Blood Cell Count 4.59 M/uL (4.33-5.43)
[2023-03-02 10:39] LABS: Potassium 3.5 mEq/L (3.5-5.1)
--- NOTE | 2023-03-02 11:50 | RAD REPORT ---
EXAM DESCRIPTION: CT - Abdomen Pelvis W Contrast - 03/02/2023 10:59 am CLINICAL HISTORY: f/u microperf, r/o worsening COMPARISON: Abdomen Pelvis W Contrast dated 02/27/2023; Abdomen Pelvis W Contrast dated 9; Abdomen Pelvis W Contrast dated 02/01/2019 TECHNIQUE: Thin cut axial CT imaging of the abdomen and pelvis was performed following intravenous a dministration of 100 mL Isovue 300. Multiplanar reformats were generated and reviewed. All CT scans are performed using dose optimization technique as appropriate and may include automated exposure control or mA/KV adjustment according to patient size. FINDINGS: No suspicious findings in the lung bases. The liver, spleen, adrenal glands, and pancreas show no suspicious findings. Gallbladder was surgical ly removed. Symmetric renal function is seen with no hydronephrosis or suspicious renal mass. Slightly increased amount of fluid associated with known micro perforation related to proximal sigmoi d diverticulitis, again containing small locule of gas. The collection of fluid and gas now measures 2.7 x 1.2 cm in greatest axial dimensions, with somewhat more pronounced adjacent fat stranding, bartlett hal without other abnormal collections. No dilated bowel loops or bowel wall thickening. No free air or free fluid. No hernia, mass or bulky lymphadenopathy. The urinary bladder is without significant f inding. No suspicious bony findings. IMPRESSION: Mildly enlarged collection of fluid and gas associated with known perforated proximal si gmoid acute diverticulitis. The collection now measures 2.7 x 1.2 cm in greatest axial dimensions. No other acute findings.
[2023-03-02] MEDS ORDERED: ERTAPENEM SODIUM 1 GM VIAL IVPB ONE (12:05)
--- NOTE | 2023-03-02 12:31 | P.PN ---
Date of Service: 03/02/23 Subjective: Feeling better today minimal abdominal pain/tenderness; hasn't required any pain medication since 02/28 no new / worsening problems tolerated clear liquids afebrile ROS: 10 point ROS as noted above, otherwise negative Physical Exam: GEN: Alert, oriented, NAD HEENT: Normal conjunctiva, sclera anicteric CV: Regular rate and rhythm, no edema Pulm: Nonlabored respirations on room air, clear bilaterally ABD: Soft, mild abdominal tenderness on deep palpation, nondistended Neuro: Normal speech, normal affect vitals reviewed Problem List: Acute proximal sigmoid diverticulitis with micro perforation GERD Acute proximal sigmoid diverticulitis with micro perforation GERD CT abdomen (02/27): acute proximal sigmoid diverticulitis with small perforation and free air tracking superiorly ~2.5 cm blood cx (02/27): NGTD General surgery consulted - Dr. Coronado serial abdominal exams Continue protonix continue PO cipro / flagyl (03/02-); transitioned from Zosyn (02/28-03/01) Invanz x1 03/[address] Coronado afebrile, leukocytosis slightly worse 12.1 -> 13.[address] (03/02): ordered f/u microperf and r/o worsening f/u for outpatient colonoscopy in ~4-6 weeks PRN pain medication Full liquids Code: Full Dispo: Home, ~1-2 days Pending further improvement
[2023-03-02] MEDS ORDERED: ERTAPENEM NA 1 GM in NA CHLORIDE 0.9% 100 ML IVPB ONE (14:00)
[2023-03-03 02:58] LABS: Absolute Lymphocytes (CBC) 1.4 K/uL (0.7-4.9); Hematocrit 36.1 % (39.6-49.0); Lymphocytes % 12.5 % (15.3-44.8); MCV 80.5 fL (80-100); MPV 8.3 fL (7.6-11.3); Platelets 391 thou/uL (152-406); RBC Red Blood Cell Count 4.49 M/uL (4.33-5.43)
--- NOTE | 2023-03-03 07:26 | P.PN ---
Date of Service: 03/03/23 Subjective: no acute events overnight minimal abdominal pain; tolerating diet tentative plan for CT abd tomorrow AM; anticipate dc pending CT results afebrile ROS: 10 point ROS as noted above, otherwise negative Physical Exam: GEN: Alert, oriented, NAD HEENT: Normal conjunctiva, sclera anicteric CV: Regular rate and rhythm, no edema Pulm: Nonlabored respirations on room air, clear bilaterally ABD: Soft, mild abdominal tenderness on deep palpation, nondistended Neuro: Normal speech, normal affect vitals reviewed Problem List: Acute proximal sigmoid diverticulitis with micro perforation GERD Acute proximal sigmoid diverticulitis with micro perforation GERD CT abdomen (02/27): acute proximal sigmoid diverticulitis with small perforation and free air tracking superiorly ~2.[address] (03/02): mildly enlarged collection of fluid and gas; now ~2.7 x 1.2 cm tentative plan for repeat CT abd tomorrow AM blood cx (02/27): NGTD General surgery consulted - Dr. Coronado serial abdominal exams Continue protonix continue PO cipro / flagyl (03/02-); transitioned from Zosyn (02/28-03/01) Invanz x1 03/[address] Coronado afebrile, leukocytosis improving 13.8 -> 11.5 f/u for outpatient colonoscopy in ~4-6 weeks PRN pain medication Full liquids; advance to GI soft 03/03 dinner Code: Full Dispo: Home, anticipate DC tomorrow Pending repeat CT results tomorrow
[2023-03-03] MEDS: PANTOPRAZOLE 40 MG INJ IVP SCH (08:41)
[2023-03-03] MEDS: metroNIDAZOLE 500 MG TABLET PO SCH ×3 (08:42→20:28)
[2023-03-03] MEDS: CIPROFLOXACIN HCL 500 MG TAB PO SCH ×2 (08:42→20:28)
[2023-03-03 23:01] VITALS: TEMP 97.6
[2023-03-04 02:43] LABS: Absolute Lymphocytes (CBC) 1.5 K/uL (0.7-4.9); Lymphocytes % 17.3 % (15.3-44.8); MCV 80.6 fL (80-100); MPV 8.1 fL (7.6-11.3); Platelets 458 thou/uL (152-406); RBC Red Blood Cell Count 4.84 M/uL (4.33-5.43)
[2023-03-04] MEDS: metroNIDAZOLE 500 MG TABLET PO SCH (08:26)
[2023-03-04] MEDS: CIPROFLOXACIN HCL 500 MG TAB PO SCH (08:26)
[2023-03-04] MEDS: PANTOPRAZOLE 40 MG INJ IVP SCH (08:26)
[2023-03-04 10:29] VITALS: BP 135/84
--- NOTE | 2023-03-04 13:52 | RAD REPORT ---
EXAM DESCRIPTION: CT ABDOMEN PELVIS WITH IV CONTRAST CLINICAL HISTORY: F/u perforation COMPARISON: 03/02/2023. TECHNIQUE: CT ABDOMEN PELVIS WITH IV CONTRAST on 03/04/2023 6:00 AM INTERNAL CONTROL CONSULTANT This exam was performed according to our departmental dose-optimization program, which includes autom ated exposure control, adjustment of the mA and/or kV according to patient size and/or use of iterati ve reconstruction technique. FINDINGS: Lower lungs are clear. Abdomen: The liver is normal in appearance. There is no biliary dilatation. Cholecystectomy was perfo rmed. The pancreas and spleen are normal in appearance. The adrenal glands and kidneys are unremarkab le. Abdominal aorta is normal in course and caliber without aneurysm. There is no free air. There is no r etroperitoneal adenopathy. There are small fat-containing umbilical hernias. Pelvis: There is moderate inflammation posterior to the proximal sigmoid colon with several extralumi nal bubbles of air. Urinary bladder is unremarkable. There is no free fluid. Appendix is normal. Skeleton: There are no acute osseous findings. No suspicious bony lesions. IMPRESSION: Unchanged findings of locally perforated presumed diverticulitis. Electronically signed by: Sj Soria MD 03/04/2023 06:50 AM INTERNAL CONTROL CONSULTANT Due to temporary technical issues with the PACS/Fluency reporting system, reports are being signed by the in house radiologists without review as a courtesy to insure prompt reporting. The interpreting radiologist is fully responsible for the content of the report.
== END 2023-03-04 12:00 | disposition home or self-care (01) | DRG 392 ==
LOC: ER 16:14 → ERHOLD 19:13 → 2ND 20:59
PROVIDERS: ADMIT Family Medicine; ATTEND Hospitalist
DX: K57.20 Diverticulitis of large intestine with perforation and abscess without bleeding (principal); K21.9 Gastro-esophageal reflux disease without esophagitis; K59.00 Constipation, unspecified; D72.829 Elevated white blood cell count, unspecified; Z88.8 Allergy status to other drugs, medicaments and biological substances; Z90.49 Acquired absence of other specified parts of digestive tract
CPT/HCPCS: 36415; 74177; 76870; 80048; 80053; 81003; 83690; 85025; 87040; 96361; 96365; 96375; 99285; C9113; J1335; J2405; J2543; J3480; J7030; J7799; Q9967

== ENCOUNTER → 2023-05-02 | Emergency (ER) | payer BC ==
[~2023-05-02] MED LIST: FAMOTIDINE 20 MG/2 ML VIAL IV ONE
[2023-05-02 14:23] LABS: Absolute Lymphocytes (CBC) 2.3 K/uL (0.7-4.9); Hematocrit 40.3 % (39.6-49.0); Lymphocytes % 25.8 % (15.3-44.8); MCV 80.6 fL (80-100); MPV 7.9 fL (7.6-11.3); Platelets 329 thou/uL (152-406)
[2023-05-02 14:40] LABS: Albumin 3.8 g/dL (3.4-5.0); Bilirubin Total 0.3 mg/dL (0.2-1.0); Potassium 3.5 mEq/L (3.5-5.1); Protein, Total 7.7 g/dL (6.4-8.2)
--- NOTE | 2023-05-02 15:13 | RAD REPORT ---
EXAM DESCRIPTION: CT - Abdomen Pelvis W Contrast - 05/02/2023 2:28 pm CLINICAL HISTORY: ABD PAIN COMPARISON: Abdomen Pelvis W Contrast dated 03/04/2023; Abdomen Pelvis W Contrast dated 3; Abdomen Pelvis W Contrast dated 02/27/2023; Abdomen Pelvis W Contrast dated 02/03/2019 TECHNIQUE: Thin cut axial CT imaging of the abdomen and pelvis was performed following intravenous a dministration of 100 mL Isovue 300. Multiplanar reformats were generated and reviewed. All CT scans are performed using dose optimization technique as appropriate and may include automated exposure control or mA/KV adjustment according to patient size. FINDINGS: No suspicious findings in the lung bases. The liver, spleen, adrenal glands, and pancreas show no suspicious findings. Gallbladder was surgical ly removed. Symmetric renal function is seen with no hydronephrosis or suspicious renal mass. No dilated bowel loops or bowel wall thickening. Triangular soft tissue density along the proximal le ft sigmoid colon extending towards the pelvic side wall, in the region of previous micro perforation in the setting of diverticulitis noted on the most recent CT. No other inflammatory changes in this r egion. This is favored to be benign, perhaps focal scarring, small organized seroma, or an obliterate d small sinus tract. Appendix is unremarkable. No free air, free fluid or inflammatory stranding. Sma ll broad-based supraumbilical hernia containing fat again seen. No suspicious mass or bulky lymphaden opathy. The urinary bladder is without significant finding. No suspicious bony findings. IMPRESSION: No acute intra-abdominal process. Small triangular soft tissue density along the proximal sigmoid colon wall as described above, favore d to represent sequelae of healing of recent diverticulitis.
--- NOTE | 2023-05-02 16:00 | EDPHYS ---
Physician Documentation [facility] Name: Neymar Arndt Age: 32 yrs Sex: Male : 1990 Arrival Date: 05/02/2023 Time: 12:34 Bed IW3 Private MD: Andrew Ford ED Physician Too Dan HPI: 05/02 15:59 This 32 yrs old Male presents to ER via Ambulatory with complaints of Abdominal Pain, ms3 Bloody Stools. 15:59 32-year-old male with past medical history of stomach ulcers, diverticulitis presents ms3 to the emergency department for lower abdominal pressure, bloody stools. Patient rates his discomfort a 1/10. Patient states he called 's office and was instructed to come to the emergency department.. Historical: - Allergies: 13:29 Ibuprofen; iw - PMHx: 13:29 Stomach Ulcers; iw - PSHx: 13:29 Cholecystectomy; iw - Immunization history:: Adult Immunizations up to date. - Social history:: Smoking status: Patient denies any tobacco usage or history of. ROS: 15:59 Constitutional: Negative for fever, and chills. Neck: Negative for injury, pain, and ms3 swelling, Cardiovascular: Negative for chest pain, and palpitations. Respiratory: Negative for shortness of breath, cough, wheezing, and pleuritic chest pain, 15:59 MS/Extremity: Negative for injury and deformity, Skin: Negative for injury, rash, and discoloration, 15:59 Abdomen/GI: Positive for rectal bleeding, 15:59 All other systems are negative, Exam: 15:59 Constitutional: This is a well developed, well nourished patient who is awake, alert, ms3 and in no acute distress. Head/Face: Normocephalic, atraumatic. Neck: Trachea midline, no cervical lymphadenopathy. Supple, full range of motion without nuchal rigidity, or vertebral point tenderness. No Meningismus. Chest/axilla: Normal chest wall appearance and motion. Nontender with no deformity. Cardiovascular: Regular rate and rhythm with a normal S1 and S2. No gallops, murmurs, or rubs. Normal PMI, no JVD. No pulse deficits. Respiratory: Lungs have equal breath sounds bilaterally, clear to auscultation and percussion. No rales, rhonchi or wheezes noted. No increased work of breathing, no retractions or nasal flaring. Abdomen/GI: Soft, non-tender, with normal bowel sounds. No distension or tympany. No guarding or rebound. No evidence of tenderness throughout. Skin: Warm, dry with normal turgor. Normal color with no rashes, no lesions, and no evidence of cellulitis. Vital Signs: 13:27 BP 147 / 94; Pulse 81; Resp 16; Temp 98; Pulse Ox 99% ; Weight 138.35 kg; Height 6 ft. iw 2 in. ; 13:27 Body Mass Index 39.16 (138.35 kg, 187.96 cm) iw MDM: 13:48 Patient medically screened. ms3 15:59 Differential diagnosis: gastritis, diverticulitis, hemorrhoids. Data reviewed: vital ms3 signs, nurses notes, lab test result(s), radiologic studies, and as a result, I will discharge patient. Consideration of Admission/Observation Escalation of care including admission/observation considered. Management of patient was discussed with the following: Slots Manager: Dr Coronado. Discussed labs and imaging with Dr. Coronado. Patient to follow-up with him in clinic for outpatient colonoscopy.. Counseling: I had a detailed discussion with the patient and/or guardian regarding the historical points, exam findings, and any diagnostic results supporting the discharge/admit diagnosis, lab results, radiology results, the need for outpatient follow up, to return to the emergency department if symptoms worsen or persist or if there are any questions or concerns that arise at home. Special discussion: Based on the patient's Hx, exam, and Dx evaluation, there is no indication for emergent surgery or inpatient Tx. It is understood by the patient/guardian that if the Sx's persist or worsen they need to return immediately for re-evaluation. ED course: Discussed labs and imaging with patient. Discussed my conversation with with the patient. Patient states he is comfortable with discharge and follow-up with Dr. Coronado. Patient to follow-up with Dr. Coronado in 2 to 3 days. All questions were answered. On reevaluation patient without bloody bowel movement in the emergency department, alert and oriented x 4, no apparent distress, nontoxic-appearing, ambulatory in emergency department, speaking full sentences. Discussed return precautions with patient to include worsening symptoms, increased rectal bleeding, lightheadedness, shortness of breath, or any other concerns. 05/02 13:55 Order name: CBC with Diff; Complete Time: 14:48 ms3 05/02 13:55 Order name: CMP; Complete Time: 14:48 ms3 05/02 13:55 Order name: Lipase; Complete Time: 14:48 ms3 05/02 13:55 Order name: CT Abd/Pelvis - IV Contrast Only; Complete Time: 15:33 ms3 05/02 13:55 Order name: IV Saline Lock; Complete Time: 14:16 ms3 05/02 13:55 Order name: Labs collected and sent; Complete Time: 14:16 ms3 Administered Medications: 14:16 Drug: Famotidine IVP 20 mg IVP once; dilute with 10 mL 0.9% NaCl; give over 2 minutes iw Route: IVP; Site: right antecubital; Disposition Summary: 05/02/23 15:59 Discharge Ordered Notes: Location: Home ms3 Condition: Stable ms3 Diagnosis - rectal bleeding ms3 - anemia ms3 Followup: ms3 - With: Warren Coronado MD - When: 1 - 2 days - Reason: Recheck today's complaints Discharge Instructions: - Discharge Summary Sheet ms3 - Rectal Bleeding ms3 Forms: - Medication Reconciliation Form ms3 - Thank You Letter ms3 - Antibiotic Education ms3 - Prescription Opioid Use ms3 - Patient Portal Instructions ms3 - Leadership Thank You Letter ms3 Signatures: Dispatcher [employer] Kenya Lopez, MADDISON RN Too Dumas DO DO ms3
--- NOTE | 2023-05-02 16:00 | ER ---
Nurse's Notes [facility] Name: Neymar Arndt Age: 32 yrs Sex: Male : 1990 Arrival Date: 05/02/2023 Time: 12:34 Bed IW3 Private MD: Andrew Ford Diagnosis: rectal bleeding;anemia Presentation: 05/02 13:27 Chief complaint: Patient states: SENT BY DR VELAZQUEZ FOR BLOODY STOOL, H/O PERFORATED iw DIVERTICULA. Coronavirus screen: At this time, the client does not indicate any symptoms associated with coronavirus-19. Ebola Screen: No symptoms or risks identified at this time. Initial Sepsis Screen: Does the patient meet any 2 criteria? No. Patient's initial sepsis screen is negative. Does the patient have a suspected source of infection? No. Patient's initial sepsis screen is negative. Risk Assessment: Do you want to hurt yourself or someone else? Patient reports no desire to harm self or others. Onset of symptoms is unknown. 13:27 Method Of Arrival: Ambulatory iw 13:27 Acuity: ELOY 3 iw Triage Assessment: 13:29 General: Appears in no apparent distress. Behavior is calm, cooperative, appropriate iw for age. Pain: Denies pain. GI: Reports bloody stool. Historical: - Allergies: 13:29 Ibuprofen; iw - PMHx: 13:29 Stomach Ulcers; iw - PSHx: 13:29 Cholecystectomy; iw - Immunization history:: Adult Immunizations up to date. - Social history:: Smoking status: Patient denies any tobacco usage or history of. Vital Signs: 13:27 BP 147 / 94; Pulse 81; Resp 16; Temp 98; Pulse Ox 99% ; Weight 138.35 kg; Height 6 ft. iw 2 in. ; 13:27 Body Mass Index 39.16 (138.35 kg, 187.96 cm) iw ED Course: 12:36 Patient arrived in ED. rg4 12:37 Andrew Ford MD is Private Physician. rg4 13:29 Triage completed. iw 13:30 Arm band placed on. iw 13:34 Too Dan DO is Attending Physician. ms3 14:16 CBC with Diff Sent. iw 14:16 CMP Sent. iw 14:16 Lipase Sent. iw 14:29 CT Abd/Pelvis - IV Contrast Only In Process Unspecified. EDMS 15:58 Warren Velazquez MD is Referral Physician. ms3 17:25 Kenya Campuzano, MADDISON is Primary Nurse. iw Administered Medications: 14:16 Drug: Famotidine IVP 20 mg IVP once; dilute with 10 mL 0.9% NaCl; give over 2 minutes iw Route: IVP; Site: right antecubital; Outcome: 15:59 Discharge ordered by . ms3 17:25 Patient left the ED. iw Signatures: Dispatcher [employer] EDAZ Kenya Campuzano, RN RN Lary Euceda 4 Too Dan DO DO ms3
[2023-05-02 18:27] VITALS: BP 147/94; TEMP 98; O2SAT 99
== END ==
LOC: ER 12:34
DX: D64.9 Anemia, unspecified (principal); Z88.6 Allergy status to analgesic agent
CPT/HCPCS: 85025; 36415; 83690; 80053; 74177; 96374; 99284; Q9967

== ENCOUNTER 2023-12-22 04:10 | Emergency (ER) | payer BC ==
[2023-12-22 05:04] LABS: Absolute Basophils 0.1 K/uL (0-0.5); Absolute Eosinophils 0.1 K/uL (0-0.5); Absolute Lymphocytes (CBC) 1.8 K/uL (0.7-4.9); Absolute Monocytes 0.9 K/uL (0.1-1.3); Absolute Neutrophil 10.1 K/uL (1.8-8.0); Basophils % 0.8 % (0-1.3); Eosinophils % 0.6 % (0-4.4); Hemoglobin 13.7 g/dL (13.6-17.9); Lymphocytes % 14.2 % (15.3-44.8); MCH 27.1 pg (27.0-35.0); MCHC 32.7 g/dL (32.0-36.0); MCV 82.8 fL (80-100); MPV 8.7 fL (7.6-11.3); Neutrophils % 77.4 % (41.7-73.7); Platelets 348 thou/uL (152-406); RBC Red Blood Cell Count 5.07 M/uL (4.33-5.43); Red Cell Distribution Width 13.8 % (12.1-15.2)
[2023-12-22] MEDS ORDERED: ONDANSETRON 4 MG/2 ML VIAL ONE (05:05)
[2023-12-22] MEDS ORDERED: NA CHLORIDE 0.9% 100 ML ONE (05:07)
[2023-12-22] MEDS ORDERED: MORPHINE 4 MG/ML SYR ONE (05:07)
[2023-12-22] MEDS ORDERED: FAMOTIDINE 20 MG/2 ML VIAL IV ONE (05:07)
[2023-12-22] MEDS ORDERED: CEFTRIAXONE 2000 MG/VIAL ONE (05:07)
[2023-12-22] MEDS ORDERED: NA CHLORIDE 0.9% 1,000 ML ONE (05:08)
[2023-12-22] MEDS ORDERED: METRONIDAZOLE 500mg IVPB 500 MG/100 ML BAG IV ONE (05:08)
[2023-12-22] MEDS ORDERED: CIPROFLOXACIN 400mg IV 400 MG/200 ML BAG IV ONE (05:08)
[2023-12-22 05:19] LABS: Albumin 3.9 g/dL (3.4-5.0); Anion Gap 5.7 mEq/L (5.0-15.0); Bilirubin Total 0.6 mg/dL (0.2-1.0); Globulin 3.9 g/dL (2.3-3.5); Potassium 3.7 mEq/L (3.5-5.1); Protein, Total 7.8 g/dL (6.4-8.2)
--- NOTE | 2023-12-22 06:31 | ER ---
Nurse's Notes [facility] Name: Neymar Arndt Age: 33 yrs Sex: Male : 1990 Arrival Date: 12/22/2023 Time: 04:10 Bed 5 Private MD: Diagnosis: Abdominal tenderness;Diverticulitis of large intestine without perforation or abscess without bleeding-proximal sigmoid ;Elevated white blood cell count Presentation: 12/21 04:36 Chief complaint: Patient states: I have not had a bowel movement in the past 3 days. I jb4 have had worsening abdominal pain with each day. Coronavirus screen: At this time, the client does not indicate any symptoms associated with coronavirus-19. Ebola Screen: No symptoms or risks identified at this time. Initial Sepsis Screen: Does the patient meet any 2 criteria? No. Patient's initial sepsis screen is negative. Does the patient have a suspected source of infection? No. Patient's initial sepsis screen is negative. Risk Assessment: Do you want to hurt yourself or someone else? Patient reports no desire to harm self or others. Onset of symptoms was December 22, 2023. Transition of care: patient was not received from another setting of care. 04:36 Method Of Arrival: Ambulatory jb4 04:36 Acuity: ELOY 3 jb4 Historical: - Allergies: 04:39 Ibuprofen; jb4 - PMHx: 04:39 Stomach Ulcers; Diverticulitis; jb4 - PSHx: 04:39 Cholecystectomy; jb4 - Immunization history:: Adult Immunizations up to date. - Infectious Disease History:: Denies. - Family history:: not pertinent. - Social history:: Smoking status: Patient denies any tobacco usage or history of. Screenin:20 [facility] ED Fall Risk Assessment (Adult) History of falling in the last 3 months, al5 including since admission No falls in past 3 months (0 pts) Confusion or Disorientation No (0 pts) Intoxicated or Sedated No (0 pts) Impaired Gait No (0 pts) Mobility Assist Device Used No (0 pt) Altered Elimination No (0 pt) Score/Fall Risk Level 0 - 2 = Low Risk Oriented to surroundings, Maintained a safe environment, Hourly rounding (assess needs \T\ fall precautionary measures) done. Abuse screen: Denies threats or abuse. Denies injuries from another. Nutritional screening: No deficits noted. Tuberculosis screening: No symptoms or risk factors identified. Assessment: 05:22 General: Appears in no apparent distress. uncomfortable, Behavior is calm, cooperative. al5 Pain: Complains of pain in left lower quadrant and right lower quadrant Pain currently is 8 out of 10 on a pain scale. Neuro: Level of Consciousness is awake, alert, obeys commands, Oriented to person, place, time, situation. Cardiovascular: Patient's skin is warm and dry. Respiratory: Airway is patent Respiratory effort is even, unlabored, Respiratory pattern is regular, symmetrical. GI: Abdomen is non-distended, Bowel sounds present X 4 quads. Abd is soft X 4 quads Abdomen is tender to palpation in right lower quadrant and left lower quadrant. : No signs and/or symptoms were reported regarding the genitourinary system. EENT: No signs and/or symptoms were reported regarding the EENT system. Derm: Skin is intact, Skin is pink, warm \T\ dry. normal. Musculoskeletal: No signs and/or symptoms reported regarding the musculoskeletal system. 06:35 Reassessment: pending discharge post antibiotics. al5 Vital Signs: 04:36 Resp 16; Weight 140.61 kg; Height 6 ft. 2 in. ; Pain 7/10; jb4 05:20 BP 137 / 86; Pulse 78; Resp 18; Pulse Ox 97% on R/A; al5 06:00 BP 144 / 97; Pulse 78; Resp 18; Pulse Ox 96% on R/A; al5 06:30 BP 129 / 75; Pulse 75; Resp 18; Pulse Ox 96% on R/A; al5 04:36 Body Mass Index 39.80 (140.61 kg, 187.96 cm) jb4 04:36 Pain Scale: Adult jb4 ED Course: 04:12 Patient arrived in ED. jj6 04:12 Hamlet Delatorre MD is Attending Physician. wu 04:39 Triage completed. jb4 04:39 Arm band placed on right wrist. jb4 04:50 Inserted saline lock: 22 gauge in right forearm, using aseptic technique. Blood oe collected. Flushed with 10 mL NS. 04:50 CBC with Diff Sent. oe 04:50 CMP Sent. oe 05:19 Summer Vidales RN is Primary Nurse. al5 05:21 Patient has correct armband on for positive identification. Bed in low position. Call al5 light in reach. Side rails up X2. Provided Education on: processes and procedures. 05:21 No provider procedures requiring assistance completed. al5 05:43 CT Abd/Pelvis - IV Contrast Only In Process Unspecified. EDMS 06:30 Warren Coronado MD is Referral Physician. wu 07:09 IV discontinued, intact, bleeding controlled, No redness/swelling at site. Pressure al5 dressing applied. Administered Medications: 05:19 Drug: Famotidine IVP 20 mg IVP once; dilute with 10 mL 0.9% NaCl; give over 2 minutes al5 Route: IVP; Site: right forearm; 06:15 Follow up: Response: No adverse reaction; Pain is decreased al5 05:20 Drug: NS 0.9% IV 1000 ml IV at 1 bolus Per protocol; 1000 mL bolus Route: IV; Rate: 1 al5 bolus; Site: right forearm; 07:07 Follow up: Response: No adverse reaction; IV Status: Completed infusion; IV Intake: al5 1000ml 05:20 Drug: Ondansetron IVP 4 mg IVP once; over 2 minutes Route: IVP; Site: right forearm; al5 06:15 Follow up: Response: No adverse reaction; Nausea is decreased al5 05:20 Drug: morphine IVP or IV 4 mg IVP once over 4 mins Route: IVP; Infused Over: 4 mins; al5 Site: right forearm; 06:15 Follow up: Response: No adverse reaction; Pain is decreased al5 05:20 Drug: Rocephin - Rocephin (cefTRIAXone) IVPB 2 grams IVPB once over 30 mins; (mix in al5 100 mL NS) Route: IVPB; Infused Over: 30 mins; Site: right forearm; 06:15 Follow up: Response: No adverse reaction; IV Status: Completed infusion; IV Intake: [id number] 06:15 Drug: metroNIDAZOLE IVPB 500 mg 100 ml IVPB at 200 ml/hr once over 30 mins Volume: 100 al5 ml; Route: IVPB; Rate: 200 ml/hr; Infused Over: 30 mins; Site: right forearm; 06:46 Follow up: Response: No adverse reaction; IV Status: Completed infusion; IV Intake: al5 100ml 06:46 Drug: Ciprofloxacin IVPB 400 mg 200 ml IVPB once over 60 mins Volume: 200 ml; Route: al5 IVPB; Infused Over: 60 mins; Site: right forearm; 07:08 Follow up: Response: No adverse reaction; Other; PER LORAINE MEJÍA TO DISCHARGE WITHOUT al5 COMPLETION OF THE CIPRO; IV Status: Order to discontinue infusion; IV Intake: 100ml Medication: 05:22 VIS not applicable for this client. al5 Intake: 06:15 IV: 50ml; Total: 50ml. al5 06:46 IV: 100ml; Total: 150ml. al5 07:07 IV: 1000ml; Total: 1150ml. al5 07:08 IV: 100ml; Total: 1250ml. al5 Outcome: 06:31 Discharge ordered by . wu 07:09 Discharged to home ambulatory, al5 07:09 Condition: good 07:09 Discharge instructions given to patient, Instructed on discharge instructions, follow up and referral plans. medication usage, Demonstrated understanding of instructions, follow-up care, medications, Prescriptions given X 6 07:09 Patient left the ED. al5 Signatures: Dispatcher [employer] EDWA Hamlet Delatorre MD MD cha Bryson, James, RN RN jb4 Harinder Little Jennifer jj6 Summer Vidales RN RN al5
--- NOTE | 2023-12-22 06:31 | EDPHYS ---
Physician Documentation [facility] Name: Neymar Arndt Age: 33 yrs Sex: Male : 1990 Arrival Date: 12/22/2023 Time: 04:10 Bed 5 Private MD: ED Physician Hamlet Delatorre HPI: 12/21 04:34 This 33 yrs old Male presents to ER via Unassigned with complaints of wu Abdominal Pain, Constipation. 04:34 The patient presents with abdominal pain in the lower abdomen, abdominal distention in wu the upper abdomen, in the lower abdomen. Onset: The symptoms/episode began/occurred 3 day(s) ago. The symptoms do not radiate. Associated signs and symptoms: Pertinent positives: constipation. Modifying factors: The symptoms are alleviated by nothing, the symptoms are aggravated by movement, pressure. Modifying factors: The symptoms are alleviated by. Severity of pain: At its worst the pain was moderate in the emergency department the pain is unchanged. The patient has experienced similar episodes in the past, multiple times. Historical: - Allergies: 04:39 Ibuprofen; jb4 - PMHx: 04:39 Stomach Ulcers; Diverticulitis; jb4 - PSHx: 04:39 Cholecystectomy; jb4 - Immunization history:: Adult Immunizations up to date. - Infectious Disease History:: Denies. - Family history:: not pertinent. - Social history:: Smoking status: Patient denies any tobacco usage or history of. ROS: 04:34 Constitutional: Negative for fever, chills, and weight loss, Eyes: Negative for injury, wu pain, redness, and discharge, ENT: Negative for injury, pain, and discharge, Neck: Negative for injury, pain, and swelling, Cardiovascular: Negative for chest pain, palpitations, and edema, Respiratory: Negative for shortness of breath, cough, wheezing, and pleuritic chest pain, Back: Negative for injury and pain, : Negative for injury, bleeding, discharge, and swelling, MS/Extremity: Negative for injury and deformity, Skin: Negative for injury, rash, and discoloration, Neuro: Negative for headache, weakness, numbness, tingling, and seizure, Psych: Negative for depression, anxiety, suicide ideation, homicidal ideation, and hallucinations, Allergy/Immunology: Negative for hives, rash, and allergies, Endocrine: Negative for neck swelling, polydipsia, polyuria, polyphagia, and marked weight changes, Hematologic/Lymphatic: Negative for swollen nodes, abnormal bleeding, and unusual bruising, 04:34 Abdomen/GI: Positive for abdominal pain, of the right lower quadrant and left lower quadrant, Exam: 04:34 Constitutional: This is a well developed, well nourished patient who is awake, alert, wu and in no acute distress. Head/Face: Normocephalic, atraumatic. Eyes: Pupils equal round and reactive to light, extra-ocular motions intact. Lids and lashes normal. Conjunctiva and sclera are non-icteric and not injected. Cornea within normal limits. Periorbital areas with no swelling, redness, or edema. ENT: Nares patent. No nasal discharge, no septal abnormalities noted. Tympanic membranes are normal and external auditory canals are clear. Oropharynx with no redness, swelling, or masses, exudates, or evidence of obstruction, uvula midline. Mucous membranes moist. Neck: Trachea midline, no thyromegaly or masses palpated, and no cervical lymphadenopathy. Supple, full range of motion without nuchal rigidity, or vertebral point tenderness. No Meningismus. Chest/axilla: Normal chest wall appearance and motion. Nontender with no deformity. No lesions are appreciated. Cardiovascular: Regular rate and rhythm with a normal S1 and S2. No gallops, murmurs, or rubs. Normal PMI, no JVD. No pulse deficits. Respiratory: Lungs have equal breath sounds bilaterally, clear to auscultation and percussion. No rales, rhonchi or wheezes noted. No increased work of breathing, no retractions or nasal flaring. Back: No spinal tenderness. No costovertebral tenderness. Full range of motion. Male : Normal genitalia with no discharge or lesions. Skin: Warm, dry with normal turgor. Normal color with no rashes, no lesions, and no evidence of cellulitis. MS/ Extremity: Pulses equal, no cyanosis. Neurovascular intact. Full, normal range of motion. Neuro: Awake and alert, GCS 15, oriented to person, place, time, and situation. Cranial nerves II-XII grossly intact. Motor strength 5/5 in all extremities. Sensory grossly intact. Cerebellar exam normal. Normal gait. Psych: Awake, alert, with orientation to person, place and time. Behavior, mood, and affect are within normal limits. 04:34 Abdomen/GI: Inspection: abdomen appears normal, Bowel sounds: normal, Palpation: moderate abdominal tenderness, in the right lower quadrant and left lower quadrant, Liver: no appreciated palpable abnormalities, Hernia: not appreciated, Vital Signs: 04:36 Resp 16; Weight 140.61 kg; Height 6 ft. 2 in. ; Pain 7/10; jb4 05:20 BP 137 / 86; Pulse 78; Resp 18; Pulse Ox 97% on R/A; al5 06:00 BP 144 / 97; Pulse 78; Resp 18; Pulse Ox 96% on R/A; al5 06:30 BP 129 / 75; Pulse 75; Resp 18; Pulse Ox 96% on R/A; al5 04:36 Body Mass Index 39.80 (140.61 kg, 187.96 cm) [facility] 04:36 Pain Scale: Adult jb4 MDM: 04:12 Patient medically screened. [facility] 04:36 Differential diagnosis: bowel obstruction, diverticulitis, gastritis, Mesenteric wu ischemia or infarction, non-specific abd pain, pancreatitis, Peptic Ulcer Disease, Perf. Duodenal Ulcer, Perf. Gastric Ulcer, Peritonitis, Prostatitis, Pyelonephritis, Ureterolithiasis, urinary tract infection. Data reviewed: vital signs, nurses notes, lab test result(s), radiologic studies, CT scan. Consideration of Admission/Observation Escalation of care including admission/observation considered. I considered the following discharge prescriptions or medication management in the emergency department Medications were administered in the Emergency Department. See MAR. Independent interpretation of the following test(s) in the Emergency Department CT Scan: My interpretation is ct abd /pelvis. Test considered but Not performed: Ultrasound no abd usg. Historians other than the Patient: pt well informed. Care significantly affected by the following chronic conditions: Obesity. 12/21 04:34 Order name: CBC with Diff; Complete Time: 05:[address] [facility] 12/21 04:34 Order name: CMP; Complete Time: 05:28 wu 12/21 04:34 Order name: Lipase; Complete Time: 05:28 wu 12/21 04:34 Order name: Urinalysis w/ reflexes 12/21 04:34 Order name: CT Abd/Pelvis - IV Contrast Only 12/21 04:34 Order name: IV Saline Lock; Complete Time: 04:[address] [facility] 12/21 04:34 Order name: Labs collected and sent; Complete Time: 04:50 wu Administered Medications: 05:19 Drug: Famotidine IVP 20 mg IVP once; dilute with 10 mL 0.9% NaCl; give over 2 minutes al5 Route: IVP; Site: right forearm; 06:15 Follow up: Response: No adverse reaction; Pain is decreased al5 05:20 Drug: NS 0.9% IV 1000 ml IV at 1 bolus Per protocol; 1000 mL bolus Route: IV; Rate: 1 al5 bolus; Site: right forearm; 07:07 Follow up: Response: No adverse reaction; IV Status: Completed infusion; IV Intake: al5 1000ml 05:20 Drug: Ondansetron IVP 4 mg IVP once; over 2 minutes Route: IVP; Site: right forearm; al5 06:15 Follow up: Response: No adverse reaction; Nausea is decreased al5 05:20 Drug: morphine IVP or IV 4 mg IVP once over 4 mins Route: IVP; Infused Over: 4 mins; al5 Site: right forearm; 06:15 Follow up: Response: No adverse reaction; Pain is decreased al5 05:20 Drug: Rocephin - Rocephin (cefTRIAXone) IVPB 2 grams IVPB once over 30 mins; (mix in al5 100 mL NS) Route: IVPB; Infused Over: 30 mins; Site: right forearm; 06:15 Follow up: Response: No adverse reaction; IV Status: Completed infusion; IV Intake: [id number] 06:15 Drug: metroNIDAZOLE IVPB 500 mg 100 ml IVPB at 200 ml/hr once over 30 mins Volume: 100 al5 ml; Route: IVPB; Rate: 200 ml/hr; Infused Over: 30 mins; Site: right forearm; 06:46 Follow up: Response: No adverse reaction; IV Status: Completed infusion; IV Intake: al5 100ml 06:46 Drug: Ciprofloxacin IVPB 400 mg 200 ml IVPB once over 60 mins Volume: 200 ml; Route: al5 IVPB; Infused Over: 60 mins; Site: right forearm; 07:08 Follow up: Response: No adverse reaction; Other; PER , LORAINE TO DISCHARGE WITHOUT al5 COMPLETION OF THE CIPRO; IV Status: Order to discontinue infusion; IV Intake: 100ml Disposition Summary: 12/22/23 06:31 Discharge Ordered Notes: Location: Home wu Problem: new [facility] Symptoms: have improved [facility] Condition: Stable [facility] Diagnosis - Abdominal tenderness wu - Diverticulitis of large intestine without perforation or abscess without bleeding - wu proximal sigmoid - Elevated white blood cell count [facility] Followup: wu - With: Private Physician - When: 2 - 3 days - Reason: Recheck today's complaints, Continuance of care, Re-evaluation by your physician Followup: wu - With: Warren Coronado MD - When: 1 - 2 days - Reason: Recheck today's complaints, Continuance of care, Re-evaluation by your physician Discharge Instructions: - Discharge Summary Sheet wu - Abdominal Pain, Adult wu - Diverticulitis wu - Diverticulitis, [id number] wu - Abdominal Pain, Adult, [id number] [facility] Forms: - Medication Reconciliation Form [facility] - Antibiotic Education [facility] - Prescription Opioid Use [facility] - Patient Portal Instructions [facility] - Leadership Thank You Letter [facility] Prescriptions: - ondansetron 4 mg Oral Tablet,disintegrating - take 1 tablet ORAL route every 6-8 hours for 5 days; 20 tablet; Refills: 0, [facility] Product Selection Permitted - Colace 100 mg Oral Tablet - take 1 tablet ORAL route every 12 hours; 14 tablet; Refills: 0, Product [facility] Selection Permitted - Flagyl 500 mg Oral Tablet - take 1 tablet ORAL route every 6 hours for 10 days; 40 tablet; Refills: 0, [facility] Product Selection Permitted - Pepcid 20 mg Oral tablet - take 1 tablet ORAL route every 12 hours for 21 days; 42 tablet; Refills: 0, [facility] Product Selection Permitted - Cipro 500 mg Oral tablet - take 1 tablet ORAL route every 12 hours for 10 days; 20 tablet; Refills: 0, [facility] Product Selection Permitted - dicyclomine 20 mg Oral tablet - take 1 tablet ORAL route 4 times per day; 28 tablet; Refills: 0, Product [facility] Selection Permitted Signatures: Dispatcher [employer] EDHamlet Solorio MD MD cha Bryson, James RN RN jb4 Summer Vidales RN RN al5 Corrections: (The following items were deleted from the chart) 04:34 04:34 CBC+H.LAB.BRZ ordered. EDMS EDMS 04:34 04:34 COMPREHENSIVE METABOLIC PANEL+C.LAB.BRZ ordered. EDMS EDMS 04:34 04:34 LIPASE+C.LAB.BRZ ordered. EDMS EDMS 04:34 04:34 Urinalysis+U.LAB.BRZ ordered. EDMS EDMS 04:34 04:34 Abdomen Pelvis W Con+CT.RAD.BRZ ordered. EDMS EDMS
[2023-12-22 06:36] LABS: Sqamous Epithelial None Seen /HPF (None Seen); Urine Bacteria None Seen /HPF (<20); Urine Bilirubin NEGATIVE (Negative); Urine Blood Negative (Negative); Urine Clarity Clear (Clear); Urine Color Colorless (Yellow); Urine Culture Reflex Order NOT NEEDED; Urine Glucose NEGATIVE (Negative); Urine Ketones NEGATIVE (Negative); Urine Microscopic Reflex YN ORDER UMIC; Urine Nitrite NEGATIVE (Negative); Urine Protein NEGATIVE (Negative); Urine RBC <5 /HPF (None Seen); Urine Urobilinogen Normal (Normal); Urine WBC None Seen /HPF (<5)
[2023-12-22 06:37] LABS: Specific Gravity > 1.030 (1.005-1.030)
[2023-12-22 07:27] VITALS: O2SAT 96
[2023-12-22 07:28] VITALS: BP 129/75
--- NOTE | 2023-12-22 09:55 | RAD REPORT ---
CLINICAL HISTORY: Abdominal pain. COMPARISON: CT Abdomen Pelvis 05/02/2023. TECHNIQUE: CT ABDOMEN PELVIS WITH IV CONTRAST on 12/22/2023 4:34 AM CDT This exam was performed according to our departmental dose-optimization program, which includes autom ated exposure control, adjustment of the mA and/or kV according to patient size and/or use of iterati ve reconstruction technique. FINDINGS: Lower lungs are clear. Abdomen: The liver is normal in appearance. There is no biliary dilatation. Cholecystectomy was perfo rmed. The pancreas and spleen are normal in appearance. The adrenal glands and kidneys are unremarkab le. Abdominal aorta is normal in course and caliber without aneurysm. There is no free air. There is no r etroperitoneal adenopathy. There is a tiny fat-containing umbilical hernia. Pelvis: There is mild thickening of the proximal sigmoid colon in an area of several diverticula. The re is surrounding inflammation. Urinary bladder is unremarkable. There is no free fluid. Appendix is normal. Skeleton: There are no acute osseous findings. No suspicious bony lesions. IMPRESSION: Proximal sigmoid colonic diverticulitis. Electronically signed by: Sj Soria MD 12/22/2023 06:23 AM CDT RP Due to temporary technical issues with the PACS/Fluency reporting system, reports are being signed by the in house radiologist without review as a courtesy to ensure prompt reporting. The interpreting r adiologist is fully responsible for the content of the report.
== END 2023-12-22 07:09 | disposition home or self-care (01) ==
LOC: ER 04:10
DX: K57.32 Diverticulitis of large intestine without perforation or abscess without bleeding (principal); D72.829 Elevated white blood cell count, unspecified
CPT/HCPCS: 96365; 96367; 85025; 81001; 36415; 83690; 80053; 74177; 96375; 99284; Q9967; J2405; J0696; J0744; J7030